=== PATIENT | female | born 2000 | race Caucasian/White ===

== ENCOUNTER 2020-06-12 12:45 | Emergency (ER) | payer MEDICAID, SELFPAY ==
[2020-06-12 12:50] VITALS: BP 130/74; PULSE 74; RESP 16; TEMP 36.1; O2SAT 100
--- NOTE | 2020-06-12 13:01 | ED.GENADUL_ITS ---
Discharge Plan Disposition Patient Disposition: HOME Condition: Improving Discharge Details Chief Complaint: Nausea/Vomit/Diar Clinical Impression: Vomiting during Primary Care Provider: Amira Kim ED Provider: Miriam Naqvi Home Meds and New Rx's Prescriptions: New metoclopramide HCl [Reglan] 10 mg tablet 10 mg PO Q6H PRN (Reason: nausea and vomiting) Qty: 20 RF: 0 Discharge Instructions Instructions: Nausea and Vomiting in (ED) Additional Instructions: Keep appointment on Wednesday as previously scheduled. Take medications as prescribed. Try small frequent meals. Follow up with primary care provider in 3-5 days. Return to ED sooner if any worsening or concerns. Increase oral fluids. May take Tylenol as needed for muscle aches. You may also try jimmie or lemon. Medical Decision Making 20-year-old female presents the ER with chief complaint of nausea vomiting diarrhea which is been ongoing for last 3 days. Patient is 6 weeks , she is 3 para 2. She denies any vaginal discharge or bleeding at this time. She reports yellow diarrhea x3 days. She reports myalgias, headache denies any fever or cough or shortness of breath. She is diaphoretic on initial exam and tearful. She has her first appointment on Wednesday. No significant past medical history or past surgical history. Did take a Zofran prior to arrival which has helped somewhat. 1404: Patient reevaluation, she states she feels better she is received 1 L normal saline and she reports feeling less nauseous after Reglan IV push. Patient given jimmie maritza for p.o. challenge. Patient was able to get up to the bathroom but did not catch a urine sample. This is however reassuring since patient is making urine at this time. I do feel that it is safe for her to be discharged home with a diagnosis of hyperemesis. Will prescribe her Reglan prescription and encouraged her to keep her appointment on Wednesday. HPI General Mode of arrival: ambulatory . Date/Time Provider Initiated Documentation: 06/12/20 12:53 . Limitations to Documentation: no limitations . Information obtained by: patient . HPI Narrative: 20-year-old female presents the ER with chief complaint of nausea vomiting diarrhea which is been ongoing for last 3 days. Patient is 6 weeks , she is 3 para 2. She denies any vaginal discharge or bleeding at this time. She reports yellow diarrhea x3 days. She reports myalgias, headache denies any fever or cough or shortness of breath. She is diaphoretic on initial exam and tearful. She has her first appointment on Wednesday. No significant past medical history or past surgical history. Did take a Zofran prior to arrival which has helped somewhat. Related Data Home Medications Medication Instructions Recorded Confirmed metoclopramide HCl [Reglan] 10 mg PO Q6H PRN #20 tab 06/12/20 Previous Rx's Medication Instructions Recorded metoclopramide HCl [Reglan] 10 mg PO Q6H PRN #20 tab 06/12/20 Allergies Allergy/AdvReac Type Severity Reaction Status Date / Time ibuprofen Allergy Unverified 06/12/20 12:55 rabbits Allergy Uncoded 06/12/20 12:54 General Stated Complaint: Nausea/Vomit/Diar ASIA: 3 Review of Systems Narrative: Constitutional: Negative for weight loss, alert and oriented, well groomed, normal body habitus, appears tearful and uncomfortable. HEENT: Denies trauma, headaches, blurry vision, nasal discharge, sore throat, trouble swallowing. Chest: Denies chest pain, palpitations, irregular rhythm, hypertension. Respiratory: Denies Shortness of breath, cough, hemoptysis. GI: Denies abdominal pain, constipation. Positive nausea vomiting diarrhea x3 days. : Denies dysuria, hematuria, flank pain, rectal bleeding. Denies vaginal discharge or bleeding. Neuro: Denies dizziness, blurry vision, weakness, syncope, headache or facial numbness. Hematologic: Denies easy bruising, intolerance to heat or cold, hair loss. [facility] Social History Smoking/Tobacco Use Status: Never Alcohol Intake: never Substance use type: does not use Do you feel safe at home: Yes Do you feel safe in your relationship?: Yes Exam Narrative Exam Narrative: Constitutional: Alert and oriented x3. Appears stated age. Normal body habitus. Head: Normocephalic, no trauma. Eyes: Pupils PERRLA, Red reflex noted, EOM's intact. Eyelids symmetrical without lesions, discharge, or swelling. ENT: Bilateral TM's WNL, External ear normal to inspection, no mastoid TTP, swelling, or erythema, Nasal turbinates WNL, no nasal discharge. Normal dentition, Posterior pharynx WNL, no exudate. Chest: RRR, Normal S1, S2, distal pulses intact. Resp: Lungs clear to auscultation bilaterally, no wheezes, rales, or rhonchi. Abdomen: Soft nontender to palpation nondistended. Musculoskeletal: Normal gait, 5/5 strength to all four extremities. Skin: No suspicious rashes or lesions. Capillary refill less than 2 sec. Neurologic: Cranial nerves II-XII intact. Alert and oriented x 3. DTR's intact. Hematologic/Lymphatic: No ecchymosis, no lymphadenopathy. Course Vital Signs Vital signs: Vital Signs Temperature 36.1 C L 06/12/20 12:50 Pulse 74 06/12/20 12:50 Respiratory Rate 16 06/12/20 12:50 Blood Pressure 130/74 06/12/20 12:50 Pulse Oximetry 100 06/12/20 12:50 Temperature 36.1 C L 06/12/20 12:50 Temperature Source Skin 06/12/20 12:50 Pulse 74 06/12/20 12:50 Respiratory Rate 16 06/12/20 12:50 Respiratory Effort Non-Labored 06/12/20 12:50 Blood Pressure 130/74 06/12/20 12:50 Blood Pressure Position Sitting 06/12/20 12:50 Pulse Oximetry 100 06/12/20 12:50 Oxygen Delivery Method Room Air 06/12/20 12:50 Oxygen Flow Rate 0 06/12/20 12:50 Pain Level 9 06/12/20 12:50
[2020-06-12] MEDS: Normal Saline 1,000 ML 1000 ML IV (13:21)
[2020-06-12] MEDS: Metoclopramide 10 MG/2 ML VIAL IVP (13:23)
[2020-06-12 13:30] LABS: Abs Immature Grans 0.01 10^3/uL (0.0-0.06); Absolute Basophil Count 0.02 10^3/uL (0.0-0.2); Absolute Eosinophil Count 0.31 10^3/uL (0.0-0.7); Absolute Lymphocyte Count 1.25 10^3/uL (1.2-3.4); Absolute Monocyte Count 0.64 10^3/uL (0.1-0.8); Absolute Neutrophil Count 4.04 10^3/uL (1.2-6.7); Basophils % 0.3; Eosinophils % 4.9; HCT 37.6 % (36.0-46.0); HGB 12.7 g/dL (11.2-15.7); Immature Grans % 0.2; Lymphocytes % 19.9; MCHC 33.8 % (32.0-36.0); MCV 88.9 fL (80-95); MPV 11.1 fL (8.0-11.0); Monocytes % 10.2; Neutrophils % 64.5; Nucleated RBC 0 %; Platelet Count 210 10^3/uL (130-400); RBC 4.23 10^6/uL (3.93-5.22); RDW 12.4 % (11.7-14.6); WBC 6.27 10^3/uL (4.4-10.8)
[2020-06-12 13:57] LABS: ALT 19 U/L (14-59); AST 6 U/L (15-37); Albumin 3.9 g/dL (3.4-5.0); Alkaline Phosphatase 50 U/L (46-116); Anion Gap 7.7 mmol/L (3-11); BUN 10 mg/dL (7-18); Bilirubin, Total 0.6 mg/dL (0.2-1.0); CO2 25.3 mmol/L (21.0-32.0); Calcium 9.3 mg/dL (8.5-10.1); Chloride 102 mmol/L (98-107); Glucose 103 mg/dL (74-106); Potassium 3.4 mmol/L (3.5-5.1); Sodium 135 mmol/L (136-145); Total Protein 7.2 g/dL (6.4-8.2)
[2020-06-12 14:15] VITALS: BP 126/62; PULSE 77; RESP 18; TEMP 36.6; O2SAT 100
[2020-06-12 14:17] VITALS: BP 126/62; PULSE 77; RESP 18; TEMP 36.6; O2SAT 100
--- NOTE | 2020-06-13 09:41 | NUR.NOTE ---
Nursing Note: At the request of [facility]STM[facility] I faxed the provider note and the labs. Janeen Mahan P [phone] F [phone]
== END 2020-06-12 14:30 | disposition home or self-care (01) ==
LOC: ER 14:12
PROVIDERS: Emergency Provider Registered Nurse Emergency; PCP Family Medicine
DX: O21.0 Mild hyperemesis gravidarum (principal); R19.7 Diarrhea, unspecified
CPT/HCPCS: 80053; 96361; 96374; 99284; 81003; 84702; 85025; J2765

== ENCOUNTER 2020-09-28 09:56 | Emergency (ER) | payer MEDICAID, SELFPAY ==
[2020-09-28 10:00] VITALS: BP 127/76; PULSE 105; RESP 16; TEMP 36.7; O2SAT 96
--- OUTSIDE RECORDS SUMMARY | 2020-09-28 10:12 | XMS_ITS ---
:2000 Author Care Team Providers Name Role Phone REYNALDO POLANCO MD Primary Care Provider [phone] Allergies Code Code System Name Reaction Severity Status Onset [id number] RxNorm Motrin Other Moderate Active 10/04/2015 Rabbit Hives ? Active ? Dander Medications Name Status Start Date Stop Date ? ? amoxicillin 500 mg capsule Completed 08/14/201408/24 1 (one) Capsule: bid - twice daily amoxicillin 500 mg tablet Completed 05/26/20162015 1 (one) Tablet: every 8 hours Augmentin 875 mg-125 mg tablet Active ? N ot available Take 1 tablet every 12 hours by oral route for 10 days. azithromycin 250 mg tablet Completed 09/09/201509/14 1 (one) Tablet Tablet: Take 2 tablets o n day 1; take 1 tablet daily for the next 4 days benzoyl peroxide 2.5 % lotion Completed ? apply once daily if too drying switch to 3x weekly bupropion HCl XL 150 mg 24 hr tablet, extended release Completed ? 06/29/2018 Take 1 tablet every day by oral route. cefdinir 300 mg capsule Completed 08/14/2015 08/24/20 15 1 (one) Capsule: bid - twice daily cephalexin 500 mg tablet Completed ? 020 Take 1 tablet twice a day by oral route. cetirizine 10 mg tablet Completed ? 07/30/20 20 Take 1 tablet every day by oral route. clindamycin 1 %-benzoyl Completed ? 05/10/20 20 peroxide 5 % topical gel Debrox 6.5 % ear drops Completed 02/07/2016 7 1 (one) Solution Solution: bid - twice daily desonide 0.05 % topical cream Completed 05/03/2013 1 Cream: apply twice daily to affected area Diclegis 10 mg-10 mg tablet,delayed release Completed ? 12/12/2019 Take 2 tablets every day by oral route at bedtime for 2 days. doxycycline hyclate 100 mg capsule Completed ? 05/10/2020 Take 1 capsule every day by oral route for 90 days. escitalopram 10 mg tablet Completed ? 2018 Flovent HFA 110 mcg/actuation aerosol inhaler Active ? Not available Inhale 1 puff twice a day by inhalation route. fluoxetine 10 mg tablet Completed 05/10/2013 05/10/20 13 1 (one) Tablet: daily hydrocortisone 1 % lotion Completed ? 2017 APPLY A THIN LAYER TO THE AFFECTED AREA(S) BY TOPICAL ROUTE ONC E DAILY ibuprofen 600 mg tablet Completed ? 04/14/20 FE 10/23 (28) 1 mg-20 mcg Completed ? 0 12/12/2019 (21)/75 mg (7) tablet Keflex 500 mg capsule Completed 10/14/2015 10/19/2015 1 (one) Capsule Capsule: two times daily Lidocaine Viscous 2 % mucosal solution Completed 4 04/03/2015 1 (one) Solution: 5ml 3-4x/day Macrobid 100 mg capsule Completed ? 08/27/20 20 Take 1 capsule every 12 hours by oral route for 5 days. metoclopramide 10 mg tablet Completed ? 07/05 Take 1 tablet 4 times a day by oral route. Mirena 20 mcg/24 hours (6 yrs) 52 mg intrauterine device Complet ed 08/03/2016 06/08/2017 1 IUD IUD: every five years misoprostol 200 mcg tablet Completed ? 12/11 omeprazole 20 mg capsule,delayed release Completed ? 08/27/2020 Take 1 capsule every day by oral route. ondansetron HCl 4 mg tablet Completed ? 07/05 Take 1 tablet 3 times a day by oral route as needed. Ortho Micronor 0.35 mg tablet Completed 05/09/2016 1 (one) Tablet: daily paroxetine 10 mg tablet Completed ? 07/30/20 20 paroxetine 40 mg tablet Completed ? 07/30/20 20 Paxil 20 mg tablet Completed ? 05/19/2019 Take 1 tablet every day by oral route for 30 days. prednisone 20 mg tablet Completed ? 07/30/20 20 Take 2 tablets every day by oral route for 5 days. Vitamin tablet Completed 09/11/2015 04/22/20 16 1 (one) Tablet Tablet: daily vitamin with calcium no.72-iron 27 mg-folic acid 1 mg tablet Completed ? 04/20/2018 Take 1 tablet every day by oral route. ProAir HFA 90 mcg/actuation aerosol inhaler Active ? Not available Inhale 2 puffs every 4 hours by inhalation route as needed. promethazine 25 mg tablet Active ? Not av ailable propranolol ER 60 mg capsule,24 hr,extended release Completed 08/07/2013 08/07/2013 1 Capsule ER 24HR: every night ranitidine 150 mg tablet Completed ? 018 sertraline 100 mg tablet Active ? Not justin ilable TAKE 1 TABLET BY MOUTH ONCE DAILY topiramate 25 mg tablet Completed 02/09/2014 08/14/20 14 1 (one) Tablet Tablet: as directed tretinoin 0.025 % topical cream Completed ? 07/30/2020 Start with 2-3x weekly then work up to APPLY TO THE AFFECTED AREA(S) BY TOPICAL ROUTE ONCE DAILY AT BEDTIME Tylenol 325 mg tablet Completed ? 07/30/2020 Take 2 tablets every 6 hours by oral route as needed. Valium 5 mg tablet Completed ? 12/12/2019 1 tab 2 hours prior to procedure,. may take 2nd tablet at arrival to procedure and 1 tablet evening after procedure if needed Problems Name Status Onset Date Source ? Unknown 02/21/2018 ? Generalized Anxiety Disorder Active 06/30/2018 ? Active 06/13/2020 ? Routine Care Active 08/27/2020 ? Moderate Recurrent Major Depression Active ? History Migraine Active ? History Mild Intermittent Asthma Active ? History Antepartum Hemorrhage Active ? History Abnormal Glucose Tolerance in Mother Active ? History Complicating , Childbirth AND/OR Puerperium Condition Affecting Obstetrical Unknown ? History Care of Mother Contact Dermatitis Active ? History Acne Active ? History Neck Pain Active ? History Localized Enlarged Lymph Nodes Active ? H istory Routine Care Unknown ? History Procedure by Method Unknown ? History SNOMED CT Concept Unknown ? History Procedures Date Name Performed by ? 10/04/2004 Hernia Repair Information not avai lable 06/14/2020 US, Obstetric, Transabdominal + [facility] Radiology (Internal) Transvaginal [address] [place], [place] [phone] (Work Place) 07/23/2020 US, Obstetric, 1St Trimester [facility] Radiology (Internal) [address] [place] [id number] (Work Place) 08/27/2020 US, Obstetric, Transabdominal + [facility] Radiology (Internal) Transvaginal [address] [place], [place] [phone] (Work Place) Results Lab Results Date Name Specimen Result Interpretation Description Value Range Status Address ? 06/26/2020 Cbc BLD ? Wbc 7.0 10*3/uL 5.0-10.0 Final [place] 10*3/uL [facility] L ab (Internal) : [address] ? ? BLD ? Rbc 4.34 10*6/uL 4.10-5.30 Final N orth 10*6/uL [facility] L ab (Internal) : [address] t ? ? BLD ? Hgb 13.1 g/dL 12.0-16.0 Final [place] g/dL [facility] L ab (Internal) : [address] t ? ? BLD ? Hct 38.5 % 37.0-47.0 Final [facility] L ab (Internal) : [address] t ? ? BLD ? Mcv 88.7 fL 80.0-96.0 Final [facility] L ab (Internal) : [address] t ? ? BLD ? Mch 30.2 pg 26.0-32.0 Final [facility] L ab (Internal) : [address] t ? ? BLD ? Mchc 34.0 g/dL 31.0-35.0 Final Nort [place] g/dL [facility] L ab (Internal) : [address] t ? ? BLD ? Plt 231 10*3/uL 130-450 Final Nort [place] 10*3/uL [facility] L ab (Internal) : [address] ? ? BLD ? Rdw 12.1 % 11.5-14.5 Final [facility] L ab (Internal) : [address] 06/26/2020 Culture UR ? Final microbiology ? Final [place] ([place] results Country Count), Hospital Lab Urine (Internal) : [address] 06/26/2020 Urinalysis UR ? UA-color yellow pale Final [place] , Complete yellow [facility] ab (Internal) : [address] ? ? UR ? UA-appear clear clear Final [facility] ab (Internal) : [address] ? ? UR ? UA-spec 1.025 1.003-1.0 Final [place] Grav [address] [place] [address] ab (Internal) : [address] ? ? UR ? UA-pH 6.0 [pH] 4.6-8.0 Final [place] [pH] [facility] ab (Internal) : [address] ? ? UR ? UA-leuk negative negative Final [facility] ab (Internal) : [address] ? ? UR ? UA-nitrit negative negative Final No rth [facility] ab (Internal) : [address] ? ? UR ? UA-prot negative negative Final [facility] ab (Internal) : [address] ? ? UR ? UA-gluc trace negative Final [facility] ab (Internal) : [address] [place] ? ? UR ? UA-ketone negative negative [facility] [address] [place] ? ? UR ? UA-urobil normal normal Final [facility] ab (Internal) : [address] [place] ? ? UR ? UA-bili negative negative Final [facility] ab (Internal) : [address] [place] ? ? UR ? UA-blood negative negative Final [facility] ab (Internal) : [address] [place] ? ? UR ? UA-WBC 0-3 [hpf] 0-3 [hpf] Final [facility] ab (Internal) : [address] [place] ? ? UR ? UA-RBC 0-2 [hpf] 0-2 [hpf] Final [facility] ab (Internal) : [address] ? ? UR ? UA-bacter rare [hpf] none seen Final [facility] [hpf] [facility] ab (Internal) : [address] ? ? UR ABNORMAL UA-epithe few [hpf] none seen Final [place] lial [hpf] [facility] L ab (Internal) : [address] ? ? UR ABNORMAL UA-mucus rare [hpf] none seen Final [place] [hpf] [facility] L ab (Internal) : [address] 06/26/2020 Type + BLD ? Abo O ? Final [place] Screen, [facility] Serum Hospital L ab (Internal) : [address] t ? ? BLD ? Rh positive ? Final [facility] L ab (Internal) : [address] ? ? BLD ? Ab Scrn negative negative Final Nort [facility] L ab (Internal) : [address] [facility] 06/26/2020 HIV (1+2) S ? HIV 1/2 negative negative [facility] Ab Screen, Antigen Count ry Serum and Hospital L ab Antibody (Interna l): [address] 06/26/2020 HBsAg S ? Hep B negative negative Final No rth (Hepatitis Surface Ag Co untry B Surface Hospita l Lab Ag), Serum (Inter nal): [address] [facility] 06/26/2020 Hepatitis S ? Hep C Ab negative negative Fin dena [place] C Virus W Rfx PCR Countr y Ab, Serum Hospita l Lab (Internal) : [address] 06/26/2020 RPR (Rapid BLD ? Obs RPR non-reactive non-reac t Final [place] Plasma airam [place]), Hospital Lab Serum (Internal) : [address] 06/26/2020 Rubella BLD ? Obs Rbla positive positive Final [place] Ab, Serum [facility] Hospital L ab (Internal) : [address] 03/28/2020 beta-HCG, S ? HCG, <2.4 [IU]/mL 2.0-6.0 Fin dena Jerez Quantitati Quant [IU]/mL Count ry ve, Serum Hospita l Lab or Plasma (Line Palletizer al): [address] 05/19/2019 Chlamydia - Catp sent to ? Final No rth Trachomati reference lab Country s + Hospital L ab Neisseria (Line Palletizer al): Gonorrhea [address] rRNA, QL, [address] Genital ? ? - Gcatp sent to ? Final [place] reference lab Cou ntr Hospital L ab (Internal) : [address] ? ? - Specimen see comments ? Final N orth Descriptio Countr y n Hospital L ab (Internal) : [address] ? ? - Chlamydia negative ? Final Nort h Result [facility] Hospital L ab (Internal) : [address] ? ? - GC Result negative ? Final Nort h [facility] Hospital L ab (Internal) : [address] 05/19/2019 Pap Test, MISC - Pap see report ? Final [place] Thinprep, [facility] Cervical Hospital Lab (Internal) : [address] ? ? MISC - Report results below ? Final No rth [facility] L ab (Internal) : [address] 01/11/2019 TSH, Serum S - Tsh 1.39 u[IU]/mL 0.47-4.68 Final [place] or Plasma u[IU]/mL Count Hospital L ab (Internal) : [address] 01/11/2019 CBC W/ BLD - Wbc 7.6 10*3/uL 5.0-10.0 Final [place] Auto Diff 10*3/uL Countr Hospital L ab (Internal) : [address] ? ? BLD - Rbc 4.89 10*6/uL 4.10-5.30 Final N orth 10*6/uL [facility] L ab (Internal) : [address] ? ? BLD - Hgb 14.2 g/dL 12.0-16.0 Final Nort [place] g/dL [facility] L ab (Internal) : [address] ? ? BLD - Hct 44.0 % 37.0-47.0 Final [place] % [facility] L ab (Internal) : [address] ? ? BLD - Mcv 90.0 fL 80.0-96.0 Final [place] fL [facility] L ab (Internal) : [address] ? ? BLD - Mch 29.0 pg 26.0-32.0 Final [place] pg [facility] L ab (Internal) : [address] t ? ? BLD - Mchc 32.3 g/dL 31.0-35.0 Final Nort h g/dL [facility] Hospital L ab (Internal) : [address] ? ? BLD - Rdw 13.0 % 11.5-14.5 Final [facility] L ab (Internal) : [address] ? ? BLD - Plt 258 10*3/uL 130-450 Final Nort [place] 10*3/uL [facility] Hospital L ab (Internal) : [address] ? ? BLD - Anc 4.70 10*3/uL ? Final Nort h [facility] Hospital L ab (Internal) : [address] ? ? BLD - Neutro 61.6 % 40.0-75.0 Final [facility] L ab (Internal) : [address] t ? ? BLD - Lymph 26.9 % 20.0-50.0 Final [facility] L ab (Internal) : [address] t ? ? BLD - Bill[place] 7.9 % 2.0-10.0 Final [facility] L ab (Internal) : [address] ? ? BLD - Eos 2.8 % 1.0-6.0 % Final [facility] L ab (Internal) : [address] ? ? BLD - Baso 0.5 % 0.0-1.0 % Final [facility] L ab (Internal) : [address] t ? ? BLD - Ig 0.3 % 0.0-0.9 % Final [facility] L ab (Internal) : [address] 02/24/2018 CBC W/ BLD High Wbc 10.6 10*3/uL 5.0-10.0 Final [place] 10*3/uL [facility] Hospital L ab (Internal) : [address] t ? ? BLD - Rbc 4.56 10*6/uL 4.10-5.30 Final N orth 10*6/uL [facility] Hospital L ab (Internal) : [address] t ? ? BLD - Hgb 12.1 g/dL 12.0-16.0 [facility] Hospital L ab (Internal) : [address] ? ? BLD - Hct 37.9 % 37.0-47.0 Final [facility] Hospital L ab (Internal) : [address] ? ? BLD - Mcv 83.1 fL 80.0-96.0 Final [facility] Hospital L ab (Internal) : [address] ? ? BLD - Mch 26.5 pg 26.0-32.0 Final [place] pg [facility] Hospital L ab (Internal) : [address] ? ? BLD - Mchc 31.9 g/dL 31.0-35.0 Final Nort [place] g/dL [facility] Hospital L ab (Internal) : [address] ? ? BLD - Rdw 13.9 % 11.5-14.5 Final [facility] Hospital L ab (Internal) : [address] ? ? BLD - Plt 188 10*3/uL 130-450 Final Nort [place] 10*3/uL [facility] Hospital L ab (Internal) : [address] t ? ? BLD - Anc 8.41 10*3/uL ? Final Nort h [facility] Hospital L ab (Internal) : [address] ? ? BLD High Neutro 79.3 % 40.0-75.0 Final [facility] Hospital L ab (Internal) : [address] ? ? BLD Low Lymph 12.5 % 20.0-50.0 Final [facility] Hospital L ab (Internal) : [address] t ? ? BLD - Bill[place] 7.1 % 2.0-10.0 Final [facility] Hospital L ab (Internal) : [address] ? ? BLD Low Eos 0.4 % 1.0-6.0 % Final [facility] Hospital L ab (Internal) : [address] ? ? BLD - Baso 0.2 % 0.0-1.0 % Final [facility] L ab (Internal) : [address] ? ? BLD - Ig 0.5 % 0.0-0.9 % Final [facility] Hospital L ab (Internal) : [address] t 02/24/2018 CMP, Serum S Low g/r 63 mg/dL 74-106 Final [place] or Plasma mg/dL [facility] ab (Internal) : [address] t ? ? S - Bun 9 mg/dL 7-17 Final [place] mg/dL [facility] Hospital L ab (Internal) : [address] t ? ? S - Crea 0.60 mg/dL 0.52-1.04 Final [place] mg/dL [facility] L ab (Internal) : [address] t ? ? S - Ca 9.5 mg/dL 8.4-10.2 Final [place] mg/dL [facility] L ab (Internal) : [address] t ? ? S Low Na 133 mmol/L 137-145 Final [place] mmol/L [facility] Hospital L ab (Internal) : [address] ? ? S - K 4.0 mmol/L 3.5-5.1 Final [place] mmol/L [facility] Hospital L ab (Internal) : [address] t ? ? S - Cl 102 mmol/L 98-107 Final [place] mmol/L [facility] Hospital L ab (Internal) : [address] t ? ? S Low Tco2 19.0 mmol/L 22.0-30.0 Final No rth mmol/L [facility] L ab (Internal) : [address] t ? ? S - Tp 6.9 g/dL 6.3-8.2 Final [place] g/dL [facility] Hospital L ab (Internal) : [address] t ? ? S - Alb 3.9 g/dL 3.5-5.0 Final [place] g/dL [facility] Hospital L ab (Internal) : [address] ? ? S - Tbil 0.8 mg/dL 0.2-1.3 Final [place] mg/dL [facility] Hospital L ab (Internal) : [address] t ? ? S High Alp 723 U/L 50-136 Final North U/L [facility] Hospital L ab (Internal) : [address] ? ? S - Alt 19 U/L 9-52 U/L Final North (Sgpt) [facility] Hospital L ab (Internal) : [address] [facility] ? ? S - Ast 17 U/L 14-36 U/L Final [place] (Sgot) [facility] Hospital L ab (Internal) : [address] [facility] 02/24/2018 Amylase, S - Yareli 73 U/L 30-110 Final [facility] Serum or U/L [facility] Plasma Hospital L ab (Internal) : [address] [facility] 02/24/2018 Lipase, S - Lip 42 U/L 23-300 Final [place] Serum or U/L [facility] Plasma Hospital L ab (Internal) : [address] [facility] 02/24/2018 Protein/cr UR - Prot/crea 0.04 mg/dL ? F inal [place] eatinine, Ratio, U Count ry Ratio, Hospital L ab Urine (Internal) : [address] [facility] ? ? UR High U-crea, 202 mg/dL 30-125 Final [place] Spot mg/dL [facility] Hospital L ab (Internal) : [address] [facility] ? ? UR - U-prot, 9.0 mg/dL 0.0-11.9 Final [facility] Spot mg/dL [facility] ab (Internal) : [address] [facility] 02/24/2018 Alpha MISC - Pamg-1 negative ? Final [place] Microglobu (Amnisure) [facility] ab Placental (Line Palletizer al): (Pamg-1), [address], Vaginal Fluid 02/21/2018 Streptococ - Final microbiology ? Fin al [place] cus Group results Countr y B, Hospital ab Culture, (Interna l): Vaginal or [address] , [facility] 01/18/2018 Alpha AMNI ? Pamg-1 negative ? Final [place] Microglobu (Amnisure) [facility] ab Placental (Line Palletizer al): (Pamg-1), [address], Vaginal Fluid 01/14/2018 RPR (Rapid BLD ? Obs RPR non-reactive non-reac t [facility] Plasma airam [place]), Hospital Lab Serum (Internal) : [address] 01/14/2018 Rubella BLD ? Obs Rbla positive positive Final [place] Ab, Serum [facility] Hospital L ab (Internal) : [address] 01/14/2018 HBsAg S ? Hep B negative negat Final Nort h (Hepatitis Surface Ag Co untry B Surface Hospita l Lab Ag), Serum (Inter nal): [address] 01/14/2018 Venipunctu BLD ? Venpn* ? ? Final N orth re [facility] Hospital L ab (Internal) : [address] [facility] 01/14/2018 Culture, UR ? Final microbiology ? Final [place] Urine results [facility] L ab (Internal) : [address] [facility] 01/14/2018 HIV (1+2) S ? HIV 1/2 negative negat Final [place] Ab Screen, Antigen Count ry Serum and Hospital L ab Antibody (Interna l): [address] 01/14/2018 Hepatitis S ? Hep C Ab negative negat Final [place] C Virus W Rfx PCR Countr y Ab, Serum Hospita l Lab (Internal) : [address] 01/14/2018 Urinalysis UR ? UA-color yellow pale Final [place] , Complete yellow [facility] Hospital L ab (Internal) : [address] ? ? UR ? UA-appear clear clear Final [facility] L ab (Internal) : [address] ? ? UR ? UA-spec 1.010 1.003-1.0 Final [place] Grav 35 [facility] Hospital L ab (Internal) : [address] ? ? UR ? UA-pH 7.0 [pH] 4.6-8.0 Final [place] [pH] [facility] L ab (Internal) : [address] ? ? UR ? UA-leuk negative negative Final Nort h Est [facility] Hospital L ab (Internal) : [address] ? ? UR ? UA-nitrit negative negative Final No rth e [facility] L ab (Internal) : [address] ? ? UR ? UA-prot negative negative Final [place] [facility] Hospital L ab (Internal) : [address] ? ? UR ? UA-gluc negative negative Final [facility] L ab (Internal) : [address] ? ? UR ? UA-ketone negative negative Final No rth [facility] L ab (Internal) : [address] [place] ? ? UR ? UA-urobil normal normal Final [facility] L ab (Internal) : [address] [place] ? ? UR ? UA-bili negative negative Final [facility] L ab (Internal) : [address] [place] ? ? UR ? UA-blood negative negative Final [facility] L ab (Internal) : [address] [place] ? ? UR ? UA-WBC 0-3 [hpf] 0-3 [hpf] Final [facility] L ab (Internal) : [address] [place] ? ? UR ? UA-RBC 0-2 [hpf] 0-2 [hpf] Final [facility] L ab (Internal) : [address] ? ? UR ? UA-bacter none seen none seen Final [place] ia [hpf] [hpf] [facility] ab (Internal) : [address] [place] ? ? UR ABNORMAL UA-epithe few [hpf] none seen Final [place] lial [hpf] [facility] ab (Internal) : [address] ? ? UR ? UA-mucus none seen none seen Final N orth [hpf] [hpf] [facility] L ab (Internal) : [address] 01/14/2018 Type + BLD ? Abo O ? Final [facility] L ab (Internal) : [address] ? ? BLD ? Rh positive ? Final [facility] L ab (Internal) : [address] ? ? BLD ? Ab Scrn negative negative Final [facility] L ab (Internal) : [address] 01/14/2018 Cbc BLD ? Wbc 8.4 10*3/uL 5.0-10.0 Final [place] 10*3/uL [facility] Hospital L ab (Internal) : [address] t ? ? BLD Low Rbc 4.02 10*6/uL 4.10-5.30 Final N orth 10*6/uL [facility] Hospital L ab (Internal) : [address] ? ? BLD Low Hgb 11.5 g/dL 12.0-16.0 Final Nort h g/dL [facility] Hospital L ab (Internal) : [address] ? ? BLD Low Hct 35.4 % 37.0-47.0 Final [facility] Hospital L ab (Internal) : [address] ? ? BLD ? Mcv 88.1 fL 80.0-96.0 Final [place] fL [facility] Hospital L ab (Internal) : [address] ? ? BLD ? Mch 28.6 pg 26.0-32.0 Final [place] pg [facility] Hospital L ab (Internal) : [address] ? ? BLD ? Mchc 32.5 g/dL 31.0-35.0 Final Nort h g/dL [facility] Hospital L ab (Internal) : [address] ? ? BLD ? Plt 184 10*3/uL 130-450 Final Nort [place] 10*3/uL [facility] L ab (Internal) : [address] ? ? BLD ? Rdw 12.7 % 11.5-14.5 Final [facility] L ab (Internal) : [address] 01/14/2018 Glucose S ? F Gluc, S 77 mg/dL 74-106 Final [place] Tolerance mg/dL [facility] ab Gestationa (Inter nal): l, 3-Hour [address] ? ? S High 1 hr 165 mg/dL 70-140 Final [place] gluc,S mg/dL [facility] (Internal) : [address] ? ? S ? 2 hr 118 mg/dL 70-140 Final [place] gluc,S mg/dL [facility] (Internal) : [address] t ? ? S Low 3 hr 68 mg/dL 70-140 Final [place] gluc,S mg/dL [facility] L ab (Internal) : [address] 12/24/2017 Venipunctu BLD ? Venpn* ? ? Final N orth re [facility] (Internal) : [address] 12/24/2017 CBC W/ BLD ? Wbc 9.1 10*3/uL 5.0-10.0 Final [place] Diff 10*3/uL [facility] (Internal) : [address] ? ? BLD Low Rbc 3.89 10*6/uL 4.10-5.30 Final N orth 10*6/uL [facility] (Internal) : [address] t ? ? BLD Low Hgb 11.5 g/dL 12.0-16.0 Final Nort h g/dL [facility] (Internal) : [address] t ? ? BLD Low Hct 35.1 % 37.0-47.0 Final [facility] ab (Internal) : [address] t ? ? BLD ? Mcv 90.2 fL 80.0-96.0 Final [facility] (Internal) : [address] t ? ? BLD ? Mch 29.6 pg 26.0-32.0 Final [facility] ab (Internal) : [address] t ? ? BLD ? Mchc 32.8 g/dL 31.0-35.0 Final Nort h g/dL [facility] (Internal) : [address] t ? ? BLD ? Rdw 13.0 % 11.5-14.5 Final [facility] (Internal) : [address] t ? ? BLD ? Plt 181 10*3/uL 130-450 Final Nort h 10*3/uL [facility] (Internal) : [address] t ? ? BLD ? Anc 6.54 10*3/uL ? Final Nort h [facility] (Internal) : [address] t ? ? BLD ? Neutro 71.8 % 40.0-75.0 Final [facility] (Internal) : [address] t ? ? BLD Low Lymph 18.5 % 20.0-50.0 Final [facility] L ab (Internal) : [address] t ? ? BLD ? Billings 7.2 % 2.0-10.0 Final [facility] L ab (Internal) : [address] t ? ? BLD ? Eos 1.5 % 1.0-6.0 % Final [facility] ab (Internal) : [address] t ? ? BLD ? Baso 0.3 % 0.0-1.0 % Final [facility] (Internal) : [address] t ? ? BLD ? Ig 0.7 % 0.0-0.9 % Final [facility] ab (Internal) : [address] t 12/24/2017 Glucose S High Gluc, 1 141 mg/dL 70-140 Final [place] Tolerance hr Pp mg/dL [facility] Test, [facility] ab Gestationa (Inter nal): l, 1-Hour [address] 09/11/2017 Venipunctu BLD ? Venpn* ? ? Final N orth re [facility] L ab (Internal) : [address] t 09/11/2017 Type + BLD ? Abo O ? Final [facility] Blood [facility] L ab (Internal) : [address] t ? ? BLD ? Rh positive ? Final [facility] ab (Internal) : [address] t ? ? BLD ? Ab Scrn negative negative [facility] : [address] t 09/11/2017 beta-HCG, S High HCG, 867[address].0 2.0-6.0 Final N orth Quantitati Quant [IU]/mL [IU]/mL Coun try ve, Serum Hospita l Lab or Plasma (Line Palletizer al): [address] t 09/11/2017 CMP, Serum S ? g/r 82 mg/dL 74-106 Final North or Plasma mg/dL [facility] L ab (Internal) : [address] t ? ? S ? Bun 10 mg/dL 7-17 Final [place] mg/dL [facility] L ab (Internal) : [address] t ? ? S Low Crea 0.50 mg/dL 0.52-1.04 Final [facility] th mg/dL [facility] ([facility] : [address] t ? ? S ? Ca 9.4 mg/dL 8.4-10.2 Final [place] mg/dL [facility] (Internal) : [address] t ? ? S Low Na 133 mmol/L 137-145 Final [place] mmol/L [facility] (Internal) : [address] t ? ? S ? K 3.6 mmol/L 3.5-5.1 Final [place] mmol/L [facility] (Internal) : [address] t ? ? S ? Cl 104 mmol/L 98-107 Final [place] mmol/L [facility] (Internal) : [address] ? ? S Low Tco2 20.0 mmol/L 22.0-30.0 Final No rth mmol/L [facility] (Internal) : [address] t ? ? S ? Tp 6.9 g/dL 6.3-8.2 Final [place] g/dL [facility] (Internal) : [address] ? ? S ? Alb 4.1 g/dL 3.5-5.0 Final [place] g/dL [facility] (Internal) : [address] t ? ? S ? Tbil 0.4 mg/dL 0.2-1.3 Final [place] mg/dL [facility] (Internal) : [address] ? ? S Low Alp 46 U/L 50-136 Final [place] U/L [facility] (Internal) : [address] t ? ? S ? Alt 27 U/L 9-52 U/L Final [place] (Sgpt) [facility] L ab (Internal) : [address] t ? ? S ? Ast 15 U/L 14-36 U/L Final [place] (Sgot) [facility] L ab (Internal) : [address] t 09/11/2017 CBC W/ BLD ? Wbc 6.5 10*3/uL 5.0-10.0 Final [place] Auto Diff 10*3/uL [facility] (Internal) : [address] t ? ? BLD ? Rbc 4.22 10*6/uL 4.10-5.30 Final N orth 10*6/uL [facility] (Internal) : [address] [place] ? ? BLD ? Hgb 12.7 g/dL 12.0-16.0 Final Nort h g/dL [facility] (Internal) : [address] ? ? BLD ? Hct 37.0 % 37.0-47.0 Final [place] [facility] L [facility] (Internal) : [address] [place] ? ? BLD ? Mcv 87.7 fL 80.0-96.0 Final [facility] (Internal) : [address] [place] ? ? BLD ? Mch 30.1 pg 26.0-32.0 Final [place] pg [facility] (Internal) : [address] [place] ? ? BLD ? Mchc 34.3 g/dL 31.0-35.0 Final Nort h g/dL [facility] (Internal) : [address] [place] ? ? BLD ? Rdw 12.2 % 11.5-14.5 Final [facility] (Internal) : [address] [place] ? ? BLD ? Plt 195 10*3/uL 130-450 Final Nort h 10*3/uL [facility] (Internal) : [address] [place] ? ? BLD ? Anc 3.86 10*3/uL ? Final Nort h [facility] (Internal) : [address] [place] ? ? BLD ? Neutro 59.6 % 40.0-75.0 Final [facility] (Internal) : [address] [place] ? ? BLD ? Lymph 31.3 % 20.0-50.0 Final [facility] (Internal) : [address] [place] ? ? BLD ? Billings 6.3 % 2.0-10.0 Final [facility] (Internal) : [address] [place] ? ? BLD ? Eos 2.0 % 1.0-6.0 % Final [facility] L ab (Internal) : [address] ? ? BLD ? Baso 0.3 % 0.0-1.0 % Final [facility] L ab (Internal) : [address] ? ? BLD ? Ig 0.5 % 0.0-0.9 % Final [facility] L ab (Internal) : [address] t 09/09/2017 CT RNA, MISC ? Specimen cervix ? Final No rth Qual, PCR, Descriptio Co untry Unspecifie n Hospit al Lab d Specimen (Inter nal): [address] t ? ? MISC ? Chlamydia negative ? Final Nort h Result [facility] (Internal) : [address] t ? ? MISC ? GC Result negative ? Final Nort h [facility] L ab (Internal) : [address] 09/01/2017 Venipunctu BLD ? Venpn* ? ? Final N orth re [facility] L ab (Internal) : [address] 09/01/2017 Mononucleo BLD ? Billings negative negative Final [facility] Lab e Ab, (Internal) : Serum [address] 09/01/2017 CMP, Serum S ? g/r 82 mg/dL 74-106 Final [place] or Plasma mg/dL [facility] L ab (Internal) : [address] t ? ? S ? Bun 13 mg/dL 7-17 Final [place] mg/dL [facility] L ab (Internal) : [address] t ? ? S ? Crea 0.60 mg/dL 0.52-1.04 Final Nor th mg/dL [facility] L ab (Internal) : [address] t ? ? S ? Ca 9.5 mg/dL 8.4-10.2 Final [place] mg/dL [facility] L ab (Internal) : [address] t ? ? S Low Na 135 mmol/L 137-145 Final [place] mmol/L [facility] L ab (Internal) : [address] ? ? S ? K 3.9 mmol/L 3.5-5.1 Final [place] mmol/L [facility] L ab (Internal) : [address] t ? ? S ? Cl 101 mmol/L 98-107 Final [place] mmol/L [facility] (Internal) : [address] ? ? S ? Tco2 22.0 mmol/L 22.0-30.0 Final No rth mmol/L [facility] (Internal) : [address] ? ? S ? Tp 6.9 g/dL 6.3-8.2 Final [place] g/dL [facility] (Internal) : [address] ? ? S ? Alb 4.1 g/dL 3.5-5.0 Final [place] g/dL [facility] (Internal) : [address] t ? ? S ? Tbil 0.3 mg/dL 0.2-1.3 Final [place] mg/dL [facility] (Internal) : [address] t ? ? S ? Alp 53 U/L 50-136 Final [place] U/L [facility] (Internal) : [address] t ? ? S ? Alt 24 U/L 9-52 U/L Final [place] (Sgpt) [facility] (Internal) : [address] ? ? S ? Ast 15 U/L 14-36 U/L Final [place] (Sgot) [facility] (Internal) : [address] t 09/01/2017 CBC W/ BLD ? Wbc 8.8 10*3/uL 5.0-10.0 Final [place] Auto Diff 10*3/uL [facility] (Internal) : [address] t ? ? BLD ? Rbc 4.46 10*6/uL 4.10-5.30 Final N orth 10*6/uL [facility] (Internal) : [address] ? ? BLD ? Hgb 13.4 g/dL 12.0-16.0 Final Nort h g/dL [facility] (Internal) : [address] ? ? BLD ? Hct 39.6 % 37.0-47.0 Final [place] % [facility] (Internal) : [address] ? ? BLD ? Mcv 88.8 fL 80.0-96.[address] [facility] ab (Internal) : [address] ? ? BLD ? Mch 30.0 pg 26.0-32.0 Final [facility] ab (Internal) : [address] ? ? BLD ? Mchc 33.8 g/dL 31.0-35.0 Final [facility] h g/dL [facility] ab (Internal) : [address] ? ? BLD ? Rdw 12.2 % 11.5-14.5 Final [facility] ab (Internal) : [address] ? ? BLD ? Plt 230 10*3/uL 130-450 Final Nort h 10*3/uL [facility] ab (Internal) : [address] [place] ? ? BLD ? Anc 5.47 10*3/uL ? Final Nort h [facility] ab (Internal) : [address] ? ? BLD ? Neutro 62.2 % 40.0-75.0 Final [facility] ab (Internal) : [address] ? ? BLD ? Lymph 26.5 % 20.0-50.0 Final [facility] ab (Internal) : [address] ? ? BLD ? Billings 7.5 % 2.0-10.0 Final [facility] ab (Internal) : [address] ? ? BLD ? Eos 3.0 % 1.0-6.0 % Final [facility] ab (Internal) : [address] ? ? BLD ? Baso 0.5 % 0.0-1.0 % Final [facility] ab (Internal) : [address] ? ? BLD ? Ig 0.3 % 0.0-0.9 % Final [facility] ab (Internal) : [address] Past Encounters 09/24/2020 Routine Care Shanelle Martin, HIREN: [address] [place] [phone], Ph. 08/27/2020 Acute Maxillary Sinusitis; Acute Frontal Sinusitis; Gildardo Nguyen MD: [address] [place] [phone], Ph. 08/27/2020 Routine Care HENRY HernandezM: [address] [place] [phone], Ph. 07/30/2020 Routine Care; Acute Cystitis i n , Antepartum HENRY HernandezM: [address] [place] [phone], Ph. 06/14/2020 Aniya Rodriguez RN: [address] [place] [phone], Ph. 06/14/2020 Routine Care; Gastroesophageal Reflux Disease Shanelle Martin CNM: [address] [place] [phone], Ph. 12/12/2019 Mild Intermittent Asthma Shavon Shanks STORE CONSULTANT: [address] [place] [phone], Ph. 09/20/2019 Acne; Generalized Anxiety Disorder; Mode rate Recurrent Major Depression; Administration of Influenza Vaccine AYDEN Hardy: [address] [place] [phone], Ph. 05/19/2019 Routine Gynecologic Examination Done; Or al Contraception Randolph Greene MD: [address] [place] [phone], Ph. Social History Tobacco Smoking Status Never Smoker Vaccine List Vaccine Type DTaP 1998 1998 1998 09/16/1999 04/12/2003 Hep B, adolescent or pediatric 1998 1998 Hib (HbOC) 1998 1998 1998 09/16/1999 influenza, seasonal, injectable, preserv ative free 06/15/2012?0.5 mL 06/21/2013?0.5 mL IPV 1998 1998 09/12/1999 09/16/1999 04/12/2003 MMR 03/21/1999 11/02/2002 Tdap 06/27/2009 03/19/2016?0.5 mL varicella 07/30/1999 08/15/2009 Plan of Care Reminders Provider Appointments None ? ? recorded. Lab None ? ? recorded. Referral None ? ? recorded. Procedures None ? ? recorded. Surgeries None ? ? recorded. Imaging None ? ? recorded. Vitals 09/24/2020 01:50PM OB 20 Height Weight BMI Blood Pressure 165.1 cm 81.92 kg 30.1 kg/m2 124/70 mm[Hg] 08/27/2020 02:10PM OB 20 Weight Blood Pressure 78.93 kg 118/70 mm[Hg] 08/27/2020 03:20PM Acute 20 Height Weight BMI Blood Pressure 165.1 cm 79.2 kg 29.1 kg/m2 114/70 mm[Hg] 07/30/2020 09:10AM New OB Weight Blood Pressure 74.12 kg 122/70 mm[Hg] 06/14/2020 09:40AM Office 20 Weight Blood Pressure 70.72 kg 104/62 mm[Hg] 12/12/2019 11:40AM Acute 20 Height Weight BMI Blood Pressure 165.1 cm 67.45 kg 24.7 kg/m2 120/82 mm[Hg] 09/20/2019 12:40PM Acute 20 Height Weight BMI Blood Pressure 165.1 cm 65.52 kg 24 kg/m2 120/70 mm[Hg] 05/19/2019 11:10AM HME 20 Height Weight BMI Blood Pressure 165.1 cm 63.87 kg 23.4 kg/m2 122/60 mm[Hg] 01/11/2019 09:40AM Follow Up 20 Height Weight BMI Blood Pressure 165.1 cm 68.95 kg 25.3 kg/m2 126/80 mm[Hg] 06/29/2018 10:20AM Follow Up 20 Height Weight BMI Blood Pressure 165.1 cm 67.4 kg 24.7 kg/m2 124/82 mm[Hg] 03/02/2018 03:40PM OB 10 Weight Blood Pressure 78.19 kg 130/62 mm[Hg] 02/21/2018 01:30PM Office 20 Weight Blood Pressure 78.02 kg 122/72 mm[Hg] 09/01/2017 Weight Blood Pressure 62.2 kg 122/68 mm[Hg] 07/19/2017 Height Weight 165.1 cm 60.24 kg 07/19/2017 Blood Pressure 120/58 mm[Hg] 12/30/2016 Blood Pressure 122/78 mm[Hg] 12/30/2016 Weight 63.05 kg 08/03/2016 Height Weight 165.1 cm 68.95 kg 08/03/2016 Blood Pressure 112/60 mm[Hg] 04/22/2016 Weight Blood Pressure 82.69 kg 130/90 mm[Hg] 02/07/2016 Blood Pressure 122/72 mm[Hg] 02/07/2016 Weight 75.75 kg 10/30/2015 Height Weight Blood Pressure 165.1 cm 68.9 kg 130/64 mm[Hg] 09/11/2015 Height Weight 165.1 cm 68.04 kg 09/11/2015 Blood Pressure 140/80 mm[Hg] 09/09/2015 Height Weight Blood Pressure 162.56 cm 68.58 kg 108/64 mm[Hg] 08/14/2015 Weight Blood Pressure 66.9 kg 130/80 mm[Hg] 04/03/2015 Height Weight 166.37 cm 64.91 kg 04/03/2015 Blood Pressure 122/82 mm[Hg] 08/14/2014 Height Weight Blood Pressure 165.1 cm 57.83 kg 110/70 mm[Hg] 06/14/2014 Blood Pressure 136/78 mm[Hg] 06/14/2014 Weight 59.15 kg 03/08/2014 Weight 58.69 kg 03/08/2014 Blood Pressure 116/70 mm[Hg] 02/09/2014 Weight Blood Pressure 58.56 kg 112/74 mm[Hg] 12/08/2013 Weight Blood Pressure 58.97 kg 112/64 mm[Hg] 10/06/2013 Weight Blood Pressure 57.61 kg 116/78 mm[Hg] 08/07/2013 Weight Blood Pressure 57.61 kg 114/64 mm[Hg] 06/21/2013 Weight Blood Pressure 55.54 kg 118/66 mm[Hg] 05/10/2013 Weight Blood Pressure 56.95 kg 122/58 mm[Hg] 05/03/2013 Weight Blood Pressure 57.15 kg 114/70 mm[Hg] 02/24/2013 Weight Blood Pressure 58.06 kg 132/60 mm[Hg] 01/30/2013 Weight Blood Pressure 56.25 kg 118/60 mm[Hg] 01/11/2013 Weight Blood Pressure 57.15 kg 126/70 mm[Hg] 09/15/2012 Weight Blood Pressure 54.39 kg 128/64 mm[Hg] 06/15/2012 Height Weight Blood Pressure 162.56 cm 51.71 kg 118/60 mm[Hg] 03/18/2012 Height Weight Blood Pressure 162.56 cm 52.16 kg 118/68 mm[Hg]
--- OUTSIDE RECORDS SUMMARY | 2020-09-28 10:12 | XMS_ITS | Encounter Summary ---
:2000 Author Care Team Providers Name Role Phone Amira Kim MD Primary Care Provider [phone] Reason for Visit None recorded. Assessment and Plan 1. Routine care ? US, obstetric, transabdomi nal + transvaginal Discussion Note: None recorded.Patient educational handouts: No information available. Plan of Care Reminders Provider Appointments Ob 20 Shanelle Maria 10/22/2020 HIREN Martin 1:40PM Lab None recorded. ? ? Referral None recorded. ? ? Procedures None recorded. ? ? Surgeries None recorded. ? ? Imaging US, Obstetric, No rth [place] Transabdominal + 08/27/2020 Hospital Radiol ogy Transvaginal (Internal) Medications Name Start Date ? ? Augmentin 875 mg-125 mg tablet ? Take 1 tablet every 12 hours by oral route for 10 day s. Flovent HFA 110 mcg/actuation aerosol inhaler ? Inhale 1 puff twice a day by inhalation route. ProAir HFA 90 mcg/actuation aerosol inhaler ? Inhale 2 puffs every 4 hours by inhalation route as n eeded. sertraline 100 mg tablet ? TAKE 1 TABLET BY MOUTH ONCE DAILY Medications Administered None recorded. Vitals Weight Blood Pressure 174 lbs 118/70 mm[Hg] Results Lab Results None recorded. Allergies Code Code System Name Reaction Severity Onset 20240511 RxNorm Motrin Other Moderate 10/04/2015 Rabbit Dander Hives ? ? Problems Name Status Onset Date Source ? Generalized Anxiety Disorder Active 06/30/2018 ? Active 06/13/2020 ? Routine Care Active 08/27/2020 ? Moderate Recurrent Major Depression Active ? History Migraine Active ? History Mild Intermittent Asthma Active ? History Antepartum Hemorrhage Active ? History Abnormal Glucose Tolerance in Mother Active ? History Complicating , Childbirth AND/OR Puerperium Contact Dermatitis Active ? History Acne Active ? History Neck Pain Active ? History Localized Enlarged Lymph Nodes Active ? H istory Procedures Date Name Performed by ? 10/04/2004 Hernia Repair Information not avai lable 08/27/2020 US, Obstetric, Transabdominal + [facility] Radiology (Internal) Transvaginal [address] [place] [address] (Work Place) Vaccine List Vaccine Type DTaP 1998 1998 1998 09/16/1999 04/12/2003 Hep B, adolescent or pediatric 1998 1998 Hib (HbOC) 1998 1998 1998 09/16/1999 influenza, seasonal, injectable, preserv ative free 06/15/2012?0.5 mL 06/21/2013?0.5 mL IPV 1998 1998 09/12/1999 09/16/1999 04/12/2003 MMR 03/21/1999 11/02/2002 Tdap 06/27/2009 03/19/2016?0.5 mL varicella 07/30/1999 08/15/2009 Social History Tobacco Smoking Status Never Smoker Are you currently employed? N Blind or serious difficulty seeing N Not es: decreased. Chewing tobacco none Most Recent Tobacco Use Screening 07/30/2020 Tobacco-years of use 0 Hand Dominance Right Alcohol intake None Live alone or with others? with others Notes: Kavitha es with boyfriend, 2 childre n Animal exposure? Y Notes: 1 dog, 1 r abbit Language Difficulties No Current Method of Control Notes: None Passive smoke exposure? N Hard of hearing or deaf in one or N both ears? 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 Past Encounters 08/27/2020 Acute Maxillary Sinusitis; Acute Frontal Sinusitis; Gildardo Nguyen MD: [address] [place] [phone], Ph. 08/27/2020 Routine Care Shanelle Martin CNM: [address] [place] [phone], Ph. 07/30/2020 Routine Care; Acute Cystitis i n , Antepartum HENRY Hernandez: [address] [place] [phone], Ph. History of Present Illness None recorded. Review of Systems None recorded. Physical Exam None recorded.
--- OUTSIDE RECORDS SUMMARY | 2020-09-28 10:12 | XMS_ITS | Encounter Summary ---
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 1. Routine care Essentially normal exam. S=D. Headaches: increase fluids and rest, magnesium OTC, tylenol, massage. If musc le aches and headaches don't improve, pt to f/u w/PCP. ? CT RNA, qual, PCR, unspeci fied specimen 2. Acute cystitis in , antepartum ? Macrobid 100 mg capsule Discussion Note: None recorded.Patient educational handouts: No information available. Plan of Care Reminders Provider Appointments Ob 20 Shanelle E Candace 10/22/2020 HIREN Martin 1:40PM Lab CT RNA, Qual, Nor th Country PCR, Unspecified Specimen 07/30/2020 Hospit al Lab (Internal) Referral None recorded. ? ? Procedures None recorded. ? ? Surgeries None recorded. ? ? Imaging None recorded. ? ? Medications Name Start Date ? ? Augmentin [...] Administered None recorded. Vitals Weight Blood Pressure 163.4 lbs 122/70 mm[Hg] Results Lab Results None recorded. Allergies [...] 10/04/2004 Hernia Repair Information not avai lable 07/23/2020 US, Obstetric, [facility]St [facility] Radiology (Internal) [address] [place] [address] (Work Place) Vaccine List Vaccine [...] Information) Functional Status No Impairment. Past Encounters 07/30/2020 Routine Care; Acute Cystitis i n , Antepartum Shanelle E Candace Martin, HENRYM: [address] [place] [phone], Ph. History of Present Illness Note: <p>Here for NOB visit.</p> Review of Systems ? Brief BAR STAFF ROS Reported By: Patient Constitutional: Constitutional: no fever, no significant weight loss/gain, fatigue Cardiovascular: Cardiovascular: no chest angelika n, no palpitations, no SOB, no orthopnea, no edema Gastrointestinal: Gastrointestinal: no difficu lty swallowing, no abdominal pain, no bowel movement changes, hear tburn, vomiting; vominting improving Genitourinary: Genitourinary: no hematuria, no abnormal bleeding, no flank pain, no difficulty urinating, no incontinence, no rash, no lesion, no discharge, no vaginal odor, no vaginal itching Psychological: Psychiatric: no depression Musculoskeletal: Musculoskeletal: ; neck pain associated with headaches that have been daily for past 2 weeks Neurologic: Neurologic: ; headaches Notes: <p>
</p> Physical Exam ? Initial OB Reported By: Patient General Appearance: General Appearance: healthy- appearing , well-nourished, no acute distress Skin: Appearance: no rashes Neck: Thyroid: no enlargement, non -tender Lymph Nodes: Palpation: non tender subman dibular nodes; tonsils slightly swollen on palpation Cardiovascular System: Auscultation: RRR, no murmur , no gallops. Legs: no LLE edema, no RLE edema Lungs: Auscultation: no wheezing, n o rales / crackles, no rhonchi Breast: Breast: no skin changes, no abnormal secretions, no discrete/distinct masses Abdomen: Auscultation/Inspection/Palp ation: bowel sounds present, soft, no tenderness/guarding/rebou nd, no CVA tenderness Female Genitalia: Vulva: grossly normal, no le sions. Vagina no abnormal vaginal discharge. Cervix: grossly n ormal, no cervical motion tenderness. Uterus: size levon ropriate for gestational age, regular contour, mobile. Adn exae: no masses palpated, no tenderness Notes: <p>Temp=99.1</p>
--- OUTSIDE RECORDS SUMMARY | 2020-09-28 10:12 | XMS_ITS | Encounter Summary ---
:2000 Author Care Team Providers Name Role Phone Amira Kim MD Primary Care Provider [phone] Reason for Visit None recorded. Assessment and Plan 1. Routine care Discussion Note: None recorded.Patient educational handouts: No information available. Plan of Care Reminders Provider Appointments Ob 20 10/22/2020 Shanelle Maria 1:40PM HIREN Martin Lab None ? ? recorded. Referral None ? ? recorded. Procedures None ? ? recorded. Surgeries None ? ? recorded. Imaging None ? ? recorded. Medications Name Start Date ? ? Augmentin [...] ONCE DAILY Medications Administered None recorded. Vitals Height Weight BMI Blood Pressure 5 ft 5 in 180.6 lbs 30.1 kg/m2 124/70 mm[Hg] Results Lab Results None recorded. Allergies [...] avai lable 08/27/2020 US, Obstetric, Transabdominal + [facility] Radiology (Internal) Transvaginal [address] [place] [address] (Work Place) Vaccine List Vaccine [...] Information) Functional Status No Impairment. Past Encounters 09/24/2020 Routine Care Shanelle Martin CNM: [address] [place] [address], Ph. 08/27/2020 Acute Maxillary Sinusitis; Acute Frontal Sinusitis; Gildardo Nguyen MD: [address] [place] [address], Ph. 08/27/2020 Routine Care Shanelle Martin CNM: [address] [place] [address], Ph. History of Present Illness None recorded. Review of Systems None recorded. Physical Exam None recorded.
--- OUTSIDE RECORDS SUMMARY | 2020-09-28 10:12 | XMS_ITS | Encounter Summary ---
:2000 Author Care Team Providers Name Role Phone Amira Kim MD Primary Care Provider [phone] Reason for Visit Swollen gland; fever Assessment and Plan 1. Acute maxillary sinusitis Given her duration and severit y of symptoms with low-grade fever and failure to improve, will pursue antimicr obial intervention. Symptomatic treatment and conservative measures advised. Reassuran ce provided. Medication safety in personnel placement specialist cautions were read to the p atient ? Augmentin 875 mg-125 mg ta blet 2. Acute frontal sinusitis Symptomatic treatment and con servative measures advised. Reassurance provided . Medication safety in personnel placement specialist cautions were read to the patient 3. Given her duration and severi ty of symptoms with low-grade fever and failure to improve, will pursue antimicrobial intervention. Symptomatic treatment and conservative measures advised. Reass urance provided. Medication safety in pr egnancy personnel placement specialist cautions were read to the patient Discussion Note: None recorded.Patient educational handouts: No [...] BMI Blood Pressure 5 ft 5 in 174 lbs 9.6 oz 29.1 kg/m2 114/70 mm[Hg] Results Lab Results None recorded. Allergies [...] avai lable 08/27/2020 US, Obstetric, Transabdominal + [facility] Radiology (Internal) Transvaginal [address] [place] [address] (Work Place) Vaccine List Vaccine [...] Acute Frontal Sinusitis; Gildardo Nguyen MD: [address] [place] [address], Ph. 08/27/2020 Routine Care Shanelle Martin CNM: [address] [place] [address], Ph. 07/30/2020 Routine Care; Acute Cystitis i n , Antepartum Shanelle Martin CNM: [address] [place] [address], Ph. History of Present Illness ? Fever Reported By: Patient HPI: Severity: worsening. Duratio n: intermittent. Context: no recent travel, no tick/insect bites, no new medications, no animal exposure, no recent surgery/procedure, no recent dental work, no IV drug use, no immunocompromise. Associated Symptoms: no rash, no diarrhea, no sore throat, night sweats, headac he, cold symptoms, vomiting, rapid or irregular heartbeat (palpita tions), generalized pain, shortness of breath Note: <p>Patient reports having swollen glands on both sides of her neck. Reports they both hurt but her throat does not hurt. In addition she is experiencing severe bilateral frontal and maxillary sinus pain for the past 6 weeks with low-grade fever</p> Review of Systems ? Notes: <p>Review of systems as prev iously described and otherwise negative for 10 organ systems</p> Physical Exam ? Notes: <p>General: Alert. Not in ac nguyễn distress.
HEENT: NCAT. No Nystagmus. Pupils equal, round and reactive. B ilateral frontal and maxillary sinus tenderness to light percussion
Neck: Wi thout adenopathy or thyromegaly, Trachea midline.
Lungs: Clear to auscultation bilaterally. Normal breath sounds without wheezing, rhonchi, o r rales
Heart: Regular without murmurs rubs or gallops
Abdomen: Soft, no ndistended, nontender.
Peripheral Vascular: No edema.
Neurologic: Awake alert and oriented. Cranial nerves II-XII intact. EOMI.
Musculoskeletal: No rmal range of motion.
Skin: Normal Moisture. Warm.
Lymphatic: No appre ciated adenopathy
Psychiatric: Appropriate</p>
[2020-09-28 11:08] LABS: Abs Immature Grans 0.07 10^3/uL (0.0-0.06); Absolute Basophil Count 0.01 10^3/uL (0.0-0.2); Absolute Eosinophil Count 0.27 10^3/uL (0.0-0.7); Absolute Lymphocyte Count 1.81 10^3/uL (1.2-3.4); Absolute Monocyte Count 0.58 10^3/uL (0.1-0.8); Absolute Neutrophil Count 7.64 10^3/uL (1.2-6.7); Basophils % 0.1; Eosinophils % 2.6; HCT 38.9 % (36.0-46.0); HGB 13.1 g/dL (11.2-15.7); Immature Grans % 0.7; Lymphocytes % 17.4; MCHC 33.7 % (32.0-36.0); MPV 11.8 fL (8.0-11.0); Monocytes % 5.6; Neutrophils % 73.6; Nucleated RBC 0 %; Platelet Count 178 10^3/uL (130-400); RBC 4.37 10^6/uL (3.93-5.22); RDW 12.9 % (11.7-14.6); RDW-SD 41.9 fL; WBC 10.38 10^3/uL (4.4-10.8)
[2020-09-28] MEDS: Acetaminophen 500 MG TAB 1000 MG PO (11:19)
[2020-09-28 11:22] LABS: ALT 15 U/L (14-59); AST 14 U/L (15-37); Albumin 3.1 g/dL (3.4-5.0); Alkaline Phosphatase 69 U/L (46-116); Anion Gap 8.5 mmol/L (3-11); BUN 9 mg/dL (7-18); Bilirubin, Total 0.3 mg/dL (0.2-1.0); CO2 22.5 mmol/L (21.0-32.0); CREATININE 0.62 mg/dL (0.55-1.02); Calcium 9.3 mg/dL (8.5-10.1); Chloride 105 mmol/L (98-107); Glucose 76 mg/dL (74-106); Potassium 4.5 mmol/L (3.5-5.1); Sodium 136 mmol/L (136-145); Total Protein 6.9 g/dL (6.4-8.2)
[2020-09-28 11:38] LABS: Bilirubin Negative (Negative); Blood Negative (Negative); Clarity Sl Cloudy (Clear); Glucose Negative (Negative); Ketones Negative (Negative); Leukocyte Esterase Negative (Negative); Nitrite Negative (Negative); Specific Gravity 1.025 (1.005-1.025); Urobilinogen 0.2 EU/dL (Up TO 0.2); pH 6.5 (5-8)
--- NOTE | 2020-09-28 12:49 | ED.GENADUL_ITS ---
Discharge Plan Disposition Patient Disposition: HOME Condition: Stable Discharge Details Clinical Impression: Pharyngitis, Cephalgia Primary Care Provider: Amira Kim ED Provider: Joshua Cisneros Home Meds and New Rx's Prescriptions: Continued sertraline 100 mg tablet 100 mg PO DAILY RF: 0 Discharge Instructions Instructions: Pharyngitis (ED), General Headache (ED) Additional Instructions: Work-up here in the ER did not reveal any obvious emergent process. Plenty of fluids to avoid dehydration. [id number] Tylenol as directed for discomfort. Covid test is pending, I do recommend quarantining until a negative test has resulted. Please contact your PROTECTIVE OFFICER on Wednesday for prompt outpatient reevaluation. Discuss your ongoing symptoms for the past 3 months as well as your symptoms that have been present with all 3 pregnancies. I also recommend following up with your primary care provider, as we discussed outpatient ENT referral may be indicated. Discharge Data Discharge Date/Time-TO BE ENTERED AT DEPARTURE: 09/28/20 13:21 Medical Decision Making 20-year-old female presents with sore throat, headache, sinus pressure that has been present for 3 months, did not respond to antibiotics, and has been present in her other 2 pregnancies. She is G3, P2, approximately 22 weeks gravid. She does have good PROTECTIVE OFFICER care. Clinically she appears well, nontoxic. She is afebrile, O2 sats are 96% on room air, blood pressure 127/76, pulse in the 90s. Given her current , symptoms being present for 3 months, I do believe obtaining routine laboratory values, getting IV fluid, p.o. Tylenol and reassessing is perfectly reasonable. We will also obtain rapid strep test. C linically I see no obvious bacterial source that would require antibiotics. Rapid strep negative. Laboratory values are otherwise unremarkable for obvious emergent process. Normal white count. Electrolytes are unremarkable. Creatinine 0.60 with a GFR greater than 60. No protein in her urine. Upon reevaluation patient remains normotensive. Reports improvement with the Tylenol and IV fluid. She clinically appears well, nontoxic. We discussed that unfortunately medications we would typically treat her with are not options given she is . Recommend [id number] Tylenol for discomfort. I recommend she contact her PROTECTIVE OFFICER team Wednesday for prompt outpatient reevaluation and discussion of her ongoing symptoms in both this and all 3 of her pregnancies. She continues to be concerned about her tonsils. Clinically she is able to manage her secretions, speak without difficulty, airway is patent. Discussed that eventual referral to ENT may be indicated if her symptoms persist but that there is nothing to do emergently speaking. Patient is agreeable to this plan. We discussed given her sore throat, nasal congestion, etc., we would test for Covid. Refuses Covid swab Patient appears well, nontoxic and is ambulatory upon discharge. No additional questions or concerns upon discharge Medical Records Medical records reviewed: Yes I reviewed the patient's medical records. Lab Data Lab results reviewed: Yes I reviewed the patient's lab results. Lab results narrative: 09/28/20 11:45 Pharynx Streptococcus Screen (JENNY) - Pending Laboratory Tests Range/Units 09/28/20 09/28/20 09/28/20 11:00 11:00 11:30 WBC (4.4-10.8) 10^3/uL 10.38 RBC (3.93-5.22) 10^6/uL 4.37 Hgb (11.2-15.7) g/dL 13.1 Hct (36.0-46.0) % 38.9 MCV (80-95) fL 89.0 MCH (27.0-33.0) pg 30.0 MCHC (32.0-36.0) % 33.7 RDW (11.7-14.6) % 12.9 Plt Count (130-400) 10^3/uL 178 MPV (8.0-11.0) fL 11.8 H Immature Gran % 0.7 Neutrophils % 73.6 Lymphocytes % 17.4 Monocytes % 5.6 Eosinophils % 2.6 Basophils % 0.1 Nucleated RBC % % 0 Absolute Neutrophils (1.2-6.7) 10^3/uL 7.64 H Absolute Lymphocytes (1.2-3.4) 10^3/uL 1.81 Absolute Monocytes (0.1-0.8) 10^3/uL 0.58 Absolute Eosinophils (0.0-0.7) 10^3/uL 0.27 Absolute Basophils (0.0-0.2) 10^3/uL 0.01 Sodium (136-145) mmol/L 136 Potassium (3.5-5.1) mmol/L 4.5 Chloride (98-107) mmol/L 105 Carbon Dioxide (21.0-32.0) mmol/L 22.5 Anion Gap (3-11) mmol/L 8.5 BUN (7-18) mg/dL 9 Creatinine (0.55-1.02) mg/dL 0.62 Estimated GFR/1.73 m2 (mL/min/1.73m2) >= 60.00 Glucose (74-106) mg/dL 76 Calcium (8.5-10.1) mg/dL 9.3 Total Bilirubin (0.2-1.0) mg/dL 0.3 AST (15-37) U/L 14 L ALT (14-59) U/L 15 Alkaline Phosphatase (46-116) U/L 69 Total Protein (6.4-8.2) g/dL 6.9 Albumin (3.4-5.0) g/dL 3.1 L Urine Color (Yellow) Yellow Urine Clarity (Clear) Sl cloudy Urine pH (5-8) 6.5 Ur Specific [place] (1.005-1.025) 1.025 Urine Protein (Negative) mg/dL Negative Urine Ketones (Negative) mg/dL Negative Urine Blood (Negative) Negative Urine Nitrite (Negative) Negative Urine Bilirubin (Negative) Negative Urine Urobilinogen (Up TO 0.2) EU/dL 0.2 Ur Leukocyte Esterase (Negative) Negative Urine Glucose (Negative) mg/dL Negative SARS-CoV-2 (PCR) Nasopharyn COVID-19 PCR Ref Test Perform Site Range/Units 09/28/20 13:10 WBC (4.4-10.8) 10^3/uL RBC (3.93-5.22) 10^6/uL Hgb (11.2-15.7) g/dL Hct (36.0-46.0) % MCV (80-95) fL MCH (27.0-33.0) pg MCHC (32.0-36.0) % RDW (11.7-14.6) % Plt Count (130-400) 10^3/uL MPV (8.0-11.0) fL Immature Gran % Neutrophils % Lymphocytes % Monocytes % Eosinophils % Basophils % Nucleated RBC % % Absolute Neutrophils (1.2-6.7) 10^3/uL Absolute Lymphocytes (1.2-3.4) 10^3/uL Absolute Monocytes (0.1-0.8) 10^3/uL Absolute Eosinophils (0.0-0.7) 10^3/uL Absolute Basophils (0.0-0.2) 10^3/uL Sodium (136-145) mmol/L Potassium (3.5-5.1) mmol/L Chloride (98-107) mmol/L Carbon Dioxide (21.0-32.0) mmol/L Anion Gap (3-11) mmol/L BUN (7-18) mg/dL Creatinine (0.55-1.02) mg/dL Estimated GFR/1.73 m2 (mL/min/1.73m2) Glucose (74-106) mg/dL Calcium (8.5-10.1) mg/dL Total Bilirubin (0.2-1.0) mg/dL AST (15-37) U/L ALT (14-59) U/L Alkaline Phosphatase (46-116) U/L Total Protein (6.4-8.2) g/dL Albumin (3.4-5.0) g/dL Urine Color (Yellow) Urine Clarity (Clear) Urine pH (5-8) Ur Specific [place] (1.005-1.025) Urine Protein (Negative) mg/dL Urine Ketones (Negative) mg/dL Urine Blood (Negative) Urine Nitrite (Negative) Urine Bilirubin (Negative) Urine Urobilinogen (Up TO 0.2) EU/dL Ur Leukocyte Esterase (Negative) Urine Glucose (Negative) mg/dL SARS-CoV-2 (PCR) Cancelled Nasopharyn COVID-19 PCR Cancelled Ref Test Perform Site Cancelled HPI General Mode of arrival: ambulatory . Date/Time Provider Initiated Documentation: 09/28/20 09:58 . Limitations to Documentation: no limitations . Information obtained by: patient . HPI Narrative: 20-year-old female G3, P2, approximately 22 weeks, has normal outpatient PROTECTIVE OFFICER care. Patient presents to the ER stating that she has a sore throat, specifically concerned about her tonsils, global mild headache, sinus pressure, which has been present in all 3 of her pregnancies. She actually brought this to the attention of her PROTECTIVE OFFICER team approximately 1 month ago, subsequently followed up with her primary care provider and was placed on antibiotics for potential sinus infection. She sta snow that the antibiotics did not really make a difference. She states that she thinks that she needs her tonsils out and that is likely causing all of her symptoms. She is very frustrated because this has been present in all of her pregnancies and she just wanted to stop. She has not taken any [id number]-[id number] medication for her symptoms. She denies fever, ear pain, difficulty speaking or swallowing, cough, shortness of breath, abdominal pain. She reports that she has had some nausea and vomiting associated with her but there is no change with this over the past few days. Denies any back pain, dysuria, hematuria, vaginal bleeding or discharge. Denies skin rash. Related Data Home Medications Medication Instructions Recorded Confirmed sertraline 100 mg PO DAILY 09/28/20 09/28/20 Allergies Allergy/AdvReac Type Severity Reaction Status Date / Time ibuprofen Allergy Unverified 09/28/20 10:06 rabbits Allergy Uncoded 09/28/20 10:06 General Stated Complaint: GenMedical ASIA: 2 Review of Systems Constitutional Constitutional: Denies fatigue, Denies fever(s), Reports headache(s) and Denies weakness Eyes Eyes: Denies change in vision ENT Ears, Nose, Mouth, and Throat: Denies otalgia, Reports headache(s), Denies neck pain and Reports sore throat Cardiovascular Cardiovascular: Denies chest pain and Denies dyspnea Respiratory Respiratory: Denies cough and Denies dyspnea Gastrointestinal Gastrointestinal: Denies abdominal pain, Denies constipation, Denies diarrhea, Reports nausea and Reports vomiting Genitourinary Genitourinary: Denies abnormal vaginal bleeding, Denies hematuria, Denies dysuria and Denies vaginal discharge Musculoskeletal Musculoskeletal: Denies back pain, Denies neck pain, Denies numbness and Denies tingling Integumentary/Breasts Skin/Breast: Denies rash Neurologic Neurologic: Reports headache(s), Denies numbness, Denies tingling and Denies weakness Endocrine Endocrine: Denies fatigue [facility] Social History Smoking/Tobacco Use Status: Never Smoking risk assessment performed?: Yes Alcohol Intake: never Drug use: Occasionally Substance use type: marijuana Do you feel safe at home: Yes Do you feel safe in your relationship?: Yes Exam Const General: cooperative, healthy appearing, comfortable and no acute distress Orientation: alert, awake and oriented x3 [facility]: normal to inspection, normocephalic and atraumatic Ears: external ears normal, TM's normal bilaterally and EAC's normal General nose exam: external nose normal, nares normal and nasal mucous membranes and turbinates normal Face and sinus: normal facial exam Mouth: oral mucosae normal and moist mucous membranes Throat: posterior oropharynx normal, tonsils normal and uvula midline Eyes General: appearance normal, both eyes and all related structures Conjunctivae: conjunctivae normal Sclera: sclerae normal Neck Neck: normal visual inspection, full ROM, no lymphadenopathy, no meningeal signs, trachea midline, supple and nontender Resp Effort & Inspection: normal respiratory effort and able to speak in complete sentences Auscultation: clear to auscultation bilaterally Cardio Rate: regular rate Rhythm: regular rhythm GI Inspection: normal to inspection (Consistent with 22 weeks gravid) Palpation: soft and nontender Auscultation: normal bowel sounds Back/Spine/Pelvis Back: No back tenderness Skin General skin exam: no rashes or lesions noted Neuro General: patient alert, patient awake, moves all extremities and no focal motor deficits Cognition: normal cognition Speech: speech normal Gait: normal gait Sensory Exam: no sensory deficits noted Extrem General: normal to inspection, full ROM, capillary refill normal, no pedal edema and no calf tenderness Psych Appearance: grossly normal Mental Status: mental status grossly normal Course Vital Signs Vital signs: Vital Signs Temperature 36.7 C 09/28/20 10:00 Pulse 105 H 09/28/20 10:00 Respiratory Rate 16 09/28/20 10:00 Blood Pressure 127/76 09/28/20 10:00 Pulse Oximetry 96 09/28/20 10:00 Temperature 36.7 C 09/28/20 10:00 Temperature Source Skin 09/28/20 10:00 Pulse 105 H 09/28/20 10:00 Respiratory Rate 16 09/28/20 10:00 Respiratory Effort Non-Labored 09/28/20 11:19 Respiratory Depth Normal 09/28/20 11:19 Blood Pressure 127/76 09/28/20 10:00 Blood Pressure Position Sitting 09/28/20 10:00 Pulse Oximetry 96 09/28/20 10:00 Oxygen Delivery Method Room Air 09/28/20 10:00 Oxygen Flow Rate 0 09/28/20 10:00 Pain Level 10 09/28/20 10:00 Comment 09/28/20 10:00 Lab/Test Results Lab/Test Results: Laboratory Tests Range/Units 09/28/20 09/28/20 09/28/20 11:00 11:00 11:30 WBC (4.4-10.8) 10^3/uL 10.38 RBC (3.93-5.22) 10^6/uL 4.37 Hgb (11.2-15.7) g/dL 13.1 Hct (36.0-46.0) % 38.9 MCV (80-95) fL 89.0 MCH (27.0-33.0) pg 30.0 MCHC (32.0-36.0) % 33.7 RDW (11.7-14.6) % 12.9 Plt Count (130-400) 10^3/uL 178 MPV (8.0-11.0) fL 11.8 H Immature Gran % 0.7 Neutrophils % 73.6 Lymphocytes % 17.4 Monocytes % 5.6 Eosinophils % 2.6 Basophils % 0.1 Nucleated RBC % % 0 Absolute Neutrophils (1.2-6.7) 10^3/uL 7.64 H Absolute Lymphocytes (1.2-3.4) 10^3/uL 1.81 Absolute Monocytes (0.1-0.8) 10^3/uL 0.58 Absolute Eosinophils (0.0-0.7) 10^3/uL 0.27 Absolute Basophils (0.0-0.2) 10^3/uL 0.01 Sodium (136-145) mmol/L 136 Potassium (3.5-5.1) mmol/L 4.5 Chloride (98-107) mmol/L 105 Carbon Dioxide (21.0-32.0) mmol/L 22.5 Anion Gap (3-11) mmol/L 8.5 BUN (7-18) mg/dL 9 Creatinine (0.55-1.02) mg/dL 0.62 Estimated GFR/1.73 m2 (mL/min/1.73m2) >= 60.00 Glucose (74-106) mg/dL 76 Calcium (8.5-10.1) mg/dL 9.3 Total Bilirubin (0.2-1.0) mg/dL 0.3 AST (15-37) U/L 14 L ALT (14-59) U/L 15 Alkaline Phosphatase (46-116) U/L 69 Total Protein (6.4-8.2) g/dL 6.9 Albumin (3.4-5.0) g/dL 3.1 L Urine Color (Yellow) Yellow Urine Clarity (Clear) Sl cloudy Urine pH (5-8) 6.5 Ur Specific [place] (1.005-1.025) 1.025 Urine Protein (Negative) mg/dL Negative Urine Ketones (Negative) mg/dL Negative Urine Blood (Negative) Negative Urine Nitrite (Negative) Negative Urine Bilirubin (Negative) Negative Urine Urobilinogen (Up TO 0.2) EU/dL 0.2 Ur Leukocyte Esterase (Negative) Negative Urine Glucose (Negative) mg/dL Negative
[2020-09-28 13:15] VITALS: BP 121/63; PULSE 78; RESP 17; TEMP 36.6; O2SAT 99
--- NOTE | 2020-09-28 13:20 | NUR.NOTE ---
pt declined covid test. provider aware:
== END 2020-09-28 13:21 | disposition home or self-care (01) ==
PROVIDERS: Emergency Provider Physician Assistant; PCP Family Medicine
DX: O26.892 Other specified pregnancy related conditions, second trimester (principal); J02.9 Acute pharyngitis, unspecified; R51.9 Headache, unspecified
CPT/HCPCS: 80053; 87880; 99283; U0003; 81003; 85025; 87081; 99282

== ENCOUNTER 2021-05-11 18:20 | Emergency (ER) | payer MEDICAID, SELFPAY ==
[2021-05-11 18:28] VITALS: BP 135/77; PULSE 81; RESP 16; TEMP 36.9; O2SAT 97
--- NOTE | 2021-05-11 18:58 | ED.GENADUL_ITS ---
Discharge Plan Disposition Patient Disposition: HOME Condition: Good Discharge Details Clinical Impression: Cellulitis Primary Care Provider: Amira Kim ED Provider: Jacklyn Peters Home Meds and New Rx's Prescriptions: New cephalexin 500 mg capsule 500 mg PO Q6H 7 Days Qty: 28 RF: 0 Continued sertraline 100 mg tablet 100 mg PO DAILY RF: 0 Discharge Instructions Instructions: Cellulitis (ED) Additional Instructions: Take antibiotic until completed Return earlier should you have spreading redness, fever, worsening pain Yogurt daily while on antibiotic Medical Decision Making Keflex as prescribed until completed Instructed to keep wound clean and dry Patient discharged home in stable condition with stable vitals Medical Records Medical records reviewed: Yes I reviewed the patient's medical records. HPI General Mode of arrival: ambulatory . Date/Time Provider Initiated Documentation: 05/11/21 18:55 . Limitations to Documentation: no limitations . Information obtained by: patient . HPI Narrative: This 20-year-old female presents with redness and pain to her tattoo site. She denies any additional complaints. She states that this was placed approximately a week and a half ago. She denies any fever or chills. She denies any chance of . Related Data Home Medications Medication Instructions Recorded Confirmed sertraline 100 mg PO DAILY 09/28/20 05/11/21 cephalexin 500 mg PO Q6H 7 Days #28 cap 05/11/21 Previous Rx's Medication Instructions Recorded cephalexin 500 mg PO Q6H 7 Days #28 cap 05/11/21 Allergies Allergy/AdvReac Type Severity Reaction Status Date / Time ibuprofen Allergy Unverified 05/11/21 18:31 rabbits Allergy Uncoded 05/11/21 18:31 General Stated Complaint: RashLesion ASIA: 4 Review of Systems Narrative: Review of systems negative x3 aside from where indicated in HPI PFSH Social History Smoking/Tobacco Use Status: Never Smoking risk assessment performed?: Yes Alcohol Intake: never Drug use: Occasionally Substance use type: does not use and marijuana Do you feel safe at home: Yes Do you feel safe in your relationship?: Yes Exam Skin Other: Tattoo noted to left hip, erythema surrounding site, new crepitus, no induration, no fluctuance, no lymphangitis Course Vital Signs Vital signs: Vital Signs Temperature 36.9 C 05/11/21 18:28 Pulse 81 05/11/21 18:28 Respiratory Rate 16 05/11/21 18:28 Blood Pressure 135/77 05/11/21 18:28 Pulse Oximetry 97 05/11/21 18:28 Temperature 36.9 C 05/11/21 18:28 Temperature Source Skin 05/11/21 18:28 Pulse 81 05/11/21 18:28 Respiratory Rate 16 05/11/21 18:28 Respiratory Effort Non-Labored 05/11/21 18:28 Blood Pressure 135/77 05/11/21 18:28 Blood Pressure Position Sitting 05/11/21 18:28 Pulse Oximetry 97 05/11/21 18:28 Oxygen Delivery Method Room Air 05/11/21 18:28 Oxygen Flow Rate 0 05/11/21 18:28 Pain Level 5 05/11/21 18:28
[2021-05-11] MEDS: Cephalexin 500 MG CAP PO (19:08)
== END 2021-05-11 19:00 | disposition home or self-care (01) ==
PROVIDERS: Emergency Provider Physician Assistant; PCP Family Medicine
DX: L03.116 Cellulitis of left lower limb (principal)
CPT/HCPCS: 99283

== ENCOUNTER 2021-06-11 20:19 | Outpatient (CLI) | payer MEDICAID, SELFPAY ==
[2021-06-11 15:14] LABS: Abs Immature Grans 0.02 10^3/uL (0.0-0.06); Absolute Basophil Count 0.05 10^3/uL (0.0-0.2); Absolute Eosinophil Count 0.42 10^3/uL (0.0-0.7); Absolute Lymphocyte Count 2.46 10^3/uL (1.2-3.4); Absolute Monocyte Count 0.48 10^3/uL (0.1-0.8); Absolute Neutrophil Count 3.35 10^3/uL (1.2-6.7); Basophils % 0.7; Eosinophils % 6.2; HCT 45.6 % (36.0-46.0); HGB 14.8 g/dL (11.2-15.7); Immature Grans % 0.3; Lymphocytes % 36.3; MCH 28.1 pg (27.0-33.0); MCHC 32.5 % (32.0-36.0); MCV 86.7 fL (80-95); MPV 11.2 fL (8.0-11.0); Monocytes % 7.1; Neutrophils % 49.4; Nucleated RBC 0 %; Platelet Count 297 10^3/uL (130-400); RBC 5.26 10^6/uL (3.93-5.22); RDW-SD 40.9 fL; WBC 6.78 10^3/uL (4.4-10.8)
[2021-06-11 16:00] LABS: Hemoglobin A1C 5.2 % (<5.7)
[2021-06-11 16:31] LABS: Magnesium 2.1 mg/dL (1.8-2.4)
[2021-06-11 16:38] LABS: ALT 29 U/L (14-59); AST 12 U/L (15-37); Albumin 4.3 g/dL (3.4-5.0); Alkaline Phosphatase 98 U/L (46-116); Anion Gap 11.2 mmol/L (3-11); BUN 14 mg/dL (7-18); Bilirubin, Total 0.2 mg/dL (0.2-1.0); CO2 25.8 mmol/L (21.0-32.0); Calcium 9.5 mg/dL (8.5-10.1); Calculated LDL 116 mg/dL (<100); Chloride 101 mmol/L (98-107); Cholesterol 186 mg/dL (<200); Ferritin 11 ng/mL (8-252); Folate 14.3 ng/mL (8.6-20.0); Glucose 125 mg/dL (74-106); HDL Cholesterol 53 mg/dL (40-60); Potassium 4.4 mmol/L (3.5-5.1); Sodium 138 mmol/L (136-145); TSH 2.08 uIU/mL (0.36-3.74); Total Protein 7.7 g/dL (6.4-8.2); Triglyceride 87 mg/dL (<150); Vitamin B12 549 pg/mL (193-986)
[2021-06-11 17:43] LABS: C-Reactive Protein 0.12 mg/dL (0.0-0.3)
[2021-06-11 19:03] LABS: HCG Qual (Serum) Negative
[2021-06-11 21:36] LABS: T3,Free 3.7 pg/mL (2.8-5.3)
[2021-06-12 01:30] LABS: Vitamin D 25 Total 34.7 ng/mL (30-100)
[2021-06-12 15:17] LABS: FREE T4 0.77 ng/dL (0.76-1.46)
== END 2021-06-11 20:20 | disposition home or self-care (01) ==
LOC: LBO 20:30
PROVIDERS: PCP Family Medicine; Visit Provider Psychiatry & Neurology Psychiatry
DX: F32.1 Major depressive disorder, single episode, moderate (principal); Z79.899 Other long term (current) drug therapy
CPT/HCPCS: 36415; 80053; 80061; 82306; 82607; 82728; 82746; 83036; 83735; 84439; 84443; 84481; 84703; 85025; 86140

== ENCOUNTER 2021-09-24 15:35 | Emergency (ER) | payer MEDICAID, SELFPAY ==
[2021-09-24 15:39] VITALS: BP 130/85; PULSE 97; RESP 12; TEMP 36.7; O2SAT 99
[2021-09-24 16:07] LABS: Bilirubin Negative (Negative); Blood Trace-lysed (Negative); Clarity Clear (Clear); Glucose Negative (Negative); Ketones Negative (Negative); Leukocyte Esterase Negative (Negative); Nitrite Negative (Negative); Urobilinogen 0.2 EU/dL (Up TO 0.2)
[2021-09-24 16:19] LABS: Bacteria Rare HPF (Negative); C & S Indicated? No; Casts Negative LPF (Negative); Crystals Negative HPF (Negative); Epithelial Cells Moderate HPF (Negative); Mucus Negative (Negative); RBC 0-2 HPF (0-2); WBC 0-2 HPF (0-5)
--- NOTE | 2021-09-24 16:40 | DI.CT_ITS ---
Exam(s) CT ABDOMEN PELVIS W EXAM: CT ABDOMEN PELVIS W CLINICAL HISTORY: abd pain, rectal bleeding. TECHNIQUE: Imaging Protocol: Axial computed tomography images with coronal and sagittal reformatted images were created and reviewed CONTRAST MATERIAL: Intravenous: Omnipaque 350 Contrast volume:100 ml Oral: / no COMPARISON: No exams were available for comparison FINDINGS: ABDOMEN: Lung Bases: Normal where visualized. Liver: Normal density. No measurable mass. Gallbladder and biliary tract: No radiodense calculus or dilation. Pancreas: Normal density, no abnormal calcifications or inflammatory process. Spleen: Normal. Kidneys: Normal size, contour and axis. No radiodense stones or obstructive uropathy. No masses seen. Adrenal glands: No masses seen. Abdominal Aorta: Abdominal portion non-dilated. Soft tissues: Rectus diastasis. PELVIS: Bladder: No gross wall thickening. No calculi.No focal mass. Bowel: The transverse, descending colon through rectum are decompressed. The bowel is not well evalu ated without oral contrast. No evidence of obstruction. Question minimal wall thickening proximal t ransverse colon. No surrounding stranding. No small bowel dilatation or wall thickening. Stomach u nremarkable.. Appendix normal. Peritoneal cavity: No ascites, collection or mesenteric inflammatory response. Bones: Within normal limits for age. Reproductive organs: Within normal limits. Lymph nodes: Unremarkable. Impression: Colon is mainly decompressed. There is a complex questionable area of wall thickening proximal trans verse colon. RADIATION DOSE DELIVERED: 980.25mGy.cm Total DLP DATA REPOSITORY: All CT scans at this facility are submitted to the National Radiology Data Registry (NRDR) Dose Index Registry (DIR) with the [employer] ([employer]). RADIATION OPTIMIZATION: All CT scans at this facility use at least one of these dose optimization te chniques: automated exposure control; mA and/or kV adjustment per patient size (includes targeted exa ms where dose is matched to clinical indication); or iterative reconstruction.
[2021-09-24 16:50] LABS: Abs Immature Grans 0.03 10^3/uL (0.0-0.06); Absolute Basophil Count 0.03 10^3/uL (0.0-0.2); Absolute Eosinophil Count 0.22 10^3/uL (0.0-0.7); Absolute Lymphocyte Count 2.16 10^3/uL (1.2-3.4); Absolute Monocyte Count 0.47 10^3/uL (0.1-0.8); Absolute Neutrophil Count 4.09 10^3/uL (1.2-6.7); Basophils % 0.4; Eosinophils % 3.1; HCT 43.8 % (36.0-46.0); HGB 14.5 g/dL (11.2-15.7); Immature Grans % 0.4; Lymphocytes % 30.9; MCH 28.9 pg (27.0-33.0); MCHC 33.1 % (32.0-36.0); MCV 87.3 fL (80-95); MPV 11.3 fL (8.0-11.0); Monocytes % 6.7; Neutrophils % 58.5; Nucleated RBC 0 %; Platelet Count 264 10^3/uL (130-400); RBC 5.02 10^6/uL (3.93-5.22); RDW 13.1 % (11.7-14.6); RDW-SD 41.7 fL
[2021-09-24] MEDS: Omnipaque 350 MG/ML 100 ML BTL IJ (16:53)
[2021-09-24 17:06] LABS: ALT 20 U/L (14-59); AST 11 U/L (15-37); Albumin 4.5 g/dL (3.4-5.0); Alkaline Phosphatase 89 U/L (46-116); Anion Gap 10.7 mmol/L (3-11); BUN 17 mg/dL (7-18); Bilirubin, Total 0.2 mg/dL (0.2-1.0); CO2 25.3 mmol/L (21.0-32.0); CREATININE 0.7 mg/dL (0.55-1.02); Calcium 9.2 mg/dL (8.5-10.1); Chloride 103 mmol/L (98-107); Glucose 95 mg/dL (74-106); Potassium 3.9 mmol/L (3.5-5.1); Sodium 139 mmol/L (136-145); Total Protein 8.1 g/dL (6.4-8.2)
[2021-09-24] MEDS: Normal Saline 1,000 ML 1000 ML IV (17:06)
[2021-09-24] MEDS: Ondansetron 4 MG/2 ML VIAL IVP (17:07)
--- NOTE | 2021-09-24 17:15 | DI.VRAD_ITS ---
PROCEDURE INFORMATION: Exam: CT Abdomen And Pelvis With Contrast Exam date and time: 09/24/2021 4:37 PM Age: 21 years old Clinical indication: Other: Abd pain, rectal bleeding TECHNIQUE: Imaging protocol: Computed tomography of the abdomen and pelvis with contrast. Contrast material: OMNIPAQUE 350; Contrast volume: 100 ml; Contrast route: INTRAVENOUS (IV); COMPARISON: No relevant prior studies available. FINDINGS: Lungs: The visualized lung bases are clear. Liver: Normal. No mass. Gallbladder and bile ducts: Normal. No calcified stones. No ductal dilation. Pancreas: Normal. No ductal dilation. Spleen: Normal. No splenomegaly. Adrenal glands: Normal. No mass. Kidneys and ureters: Normal. No hydronephrosis. Stomach and bowel: Subtle focal mucosal enhancement in the mid transverse colon best seen on series 5, image 17 and series 4, image 39. Relatively decompressed mid transverse to left hemicolon without significant wall thickening or mucosal enhancement. Appendix: Appendix is normal in caliber. No periappendiceal edema. No findings to suggest acute appendicitis. Intraperitoneal space: Physiologic pelvic free fluid. Vasculature: Unremarkable. No abdominal aortic aneurysm. Lymph nodes: Unremarkable. No enlarged lymph nodes. Urinary bladder: Unremarkable as visualized. Reproductive: Unremarkable as visualized. Bones/joints: Unremarkable. No acute fracture. Soft tissues: Mild rectus diastasis and a fat containing umbilical hernia. The adjacent bowel loops are noninflamed. No bowel wall thickening or bowel distress. IMPRESSION: Subtle mucosal enhancement of the mid transverse colon proximal to the remainder of the decompressed left hemicolon. No colonic distension or evidence for obstruction. Findings may represent physiologic decompression or subtle early signs ulcerative colitis. Correlate with any history of inflammatory bowel disease. Dictated and Authenticated by: Ever Kwok MD. Ordering:ALDO Galeano MD
--- NOTE | 2021-09-24 17:35 | ED.GENADUL_ITS ---
Discharge Plan Disposition Patient Disposition: HOME Condition: Stable Discharge Details Clinical Impression: Colitis Primary Care Provider: Amira Kim ED Provider: Waleska Becker Home Meds and New Rx's Prescriptions: New cephalexin 500 mg capsule 500 mg PO DAILY Qty: 1 RF: 0 Continued sertraline 100 mg tablet 150 mg PO DAILY RF: 0 cetirizine 10 mg tablet 10 mg PO DAILY RF: 0 tretinoin [Retin-A] 0.025 % cream 1 applic TOPICAL DIRECTED RF: 0 lorazepam 0.5 mg tablet 0.5 mg PO BID RF: 0 mirtazapine 15 mg tablet 15 mg PO DAILY RF: 0 cholecalciferol (vitamin D3) 50 mcg (2,000 unit) capsule 2,000 unit PO DAILY RF: 0 Discontinued cephalexin 500 mg capsule 500 mg PO DAILY RF: 0 Discharge Instructions Instructions: Colitis (ED) Additional Instructions: clear liquids for the next 24 hours, then slowly advance to a low fiber diet. your cephalexin should be continued as directed, removed in error Referrals: Amira Kim [Primary Care Provider] - (see pcp for referral for colonoscopy and further evaluation) Discharge Data Discharge Date/Time-TO BE ENTERED AT DEPARTURE: 09/24/21 18:06 Medical Decision Making patient presents with c/o abdominal pain and jeffy blood in stool. no diarrhea. no fevers no similar symptoms labs obtained and are unremarkable rectal exam shows no obvious hemorrhoids, no stool or jeffy blood in vault. negative for OB. CT abd/pelvis shows possible early signs of ulcerative colitis. findings discussed with Dr Alcantara who recommends clears with advance to low fiber, pcp f/u and outpatient colonoscopy. safe for discharge to home Medical Records Medical records reviewed: Yes I reviewed the patient's medical records. Imaging Data Radiologic Study: Imaging: CT Scan (abd pelvis with) Radiologist's impression: Exam(s) PROCEDURE INFORMATION: Exam: CT Abdomen And Pelvis With Contrast Exam date and time: 09/24/2021 4:37 PM Age: 21 years old Clinical indication: Other: Abd pain, rectal bleeding TECHNIQUE: Imaging protocol: Computed tomography of the abdomen and pelvis with contrast. Contrast material: OMNIPAQUE 350; Contrast volume: 100 ml; Contrast route: INTRAVENOUS (IV); COMPARISON: No relevant prior studies available. FINDINGS: Lungs: The visualized lung bases are clear. Liver: Normal. No mass. Gallbladder and bile ducts: Normal. No calcified stones. No ductal dilation. Pancreas: Normal. No ductal dilation. Spleen: Normal. No splenomegaly. Adrenal glands: Normal. No mass. Kidneys and ureters: Normal. No hydronephrosis. Stomach and bowel: Subtle focal mucosal enhancement in the mid transverse colon best seen on series 5, image 17 and series 4, image 39. Relatively decompressed mid transverse to left hemicolon without significant wall thickening or mucosal enhancement. Appendix: Appendix is normal in caliber. No periappendiceal edema. No findings to suggest acute appendicitis. Intraperitoneal space: Physiologic pelvic free fluid. Vasculature: Unremarkable. No abdominal aortic aneurysm. Lymph nodes: Unremarkable. No enlarged lymph nodes. Urinary bladder: Unremarkable as visualized. Reproductive: Unremarkable as visualized. Bones/joints: Unremarkable. No acute fracture. Soft tissues: Mild rectus diastasis and a fat containing umbilical hernia. The adjacent bowel loops are noninflamed. No bowel wall thickening or bowel distress. IMPRESSION: Subtle mucosal enhancement of the mid transverse colon proximal to the remainder of the decompressed left hemicolon. No colonic distension or evidence for obstruction. Findings may represent physiologic decompression or subtle early signs ulcerative colitis. Correlate with any history of inflammatory bowel disease. Dictated and Authenticated by: Ever Kwok MD. Ordering:ALDO Galeano MD Lab Data Lab results reviewed: Yes I reviewed the patient's lab results. Lab results narrative: Laboratory Results - last 24 hr 09/24/21 09/24/21 09/24/21 16:00 16:10 16:10 WBC 7.00 RBC 5.02 Hgb 14.5 Hct 43.8 MCV 87.3 MCH 28.9 MCHC 33.1 RDW 13.1 Plt Count 264 MPV 11.3 H Immature Gran % 0.4 Neutrophils % 58.5 Lymphocytes % 30.9 Monocytes % 6.7 Eosinophils % 3.1 Basophils % 0.4 Nucleated RBC % 0 Absolute Neutrophils 4.09 Absolute Lymphocytes 2.16 Absolute Monocytes 0.47 Absolute Eosinophils 0.22 Absolute Basophils 0.03 Sodium 139 Potassium 3.9 Chloride 103 Carbon Dioxide 25.3 Anion Gap 10.7 BUN 17 Creatinine 0.7 Estimated GFR/1.73 m2 >= 60.00 Glucose 95 Calcium 9.2 Magnesium 2.0 Total Bilirubin 0.2 AST 11 L ALT 20 Alkaline Phosphatase 89 Total Protein 8.1 Albumin 4.5 Urine Color Yellow Urine Clarity Clear Urine pH 6.0 Ur Specific [place] 1.020 Urine Protein Negative Urine Ketones Negative Urine Blood Trace-lysed H Urine Nitrite Negative Urine Bilirubin Negative Urine Urobilinogen 0.2 Ur Leukocyte Esterase Negative Urine RBC 0-2 Urine WBC 0-2 Ur Epithelial Cells Moderate Urine Crystals Negative Urine Bacteria Rare Urine Casts Negative Urine Mucus Negative Ur Culture Indicated? No Urine Glucose Negative HPI General Mode of arrival: ambulatory . Date/Time Provider Initiated Documentation: 09/24/21 16:10 . Limitations to Documentation: no limitations . Information obtained by: patient . HPI Narrative: patient presents to the ED with 2 episodes of bright red blood with stooling. denies similar history, states her stool was formed but not constipated no diarrhea. has generalized abdominal pain. mild nausea but taking po. no fever or chills. Related Data Home Medications Medication Instructions Recorded Confirmed sertraline 150 mg PO DAILY 09/28/20 09/24/21 cephalexin 500 mg PO DAILY #1 cap 09/24/21 cetirizine 10 mg PO DAILY 09/24/21 09/24/21 cholecalciferol (vitamin D3) 2,000 unit PO DAILY 09/24/21 09/24/21 lorazepam 0.5 mg PO BID 09/24/21 09/24/21 mirtazapine 15 mg PO DAILY 09/24/21 09/24/21 tretinoin [Retin-A] 1 applic TOPICAL DIRECTED 09/24/21 09/24/21 Previous Rx's Medication Instructions Recorded cephalexin 500 mg PO DAILY #1 cap 09/24/21 Allergies Allergy/AdvReac Type Severity Reaction Status Date / Time ibuprofen Allergy Unverified 09/24/21 15:44 rabbits Allergy Uncoded 09/24/21 15:44 General Stated Complaint: GI Bleed ASIA: 3 Review of Systems Constitutional Constitutional: Denies fever(s) and Denies weakness ENT Ears, Nose, Mouth, and Throat: Denies vertigo and Denies dizziness Cardiovascular Cardiovascular: Denies chest pain, Denies syncope and Denies dyspnea Respiratory Respiratory: Denies cough and Denies dyspnea Gastrointestinal Gastrointestinal: Reports abdominal pain, Reports hematochezia, Denies constipation, Denies diarrhea, Reports nausea and Denies vomiting Genitourinary Genitourinary: Denies urinary incontinence, Denies urinary hesitancy, Denies urinary urgency and Denies vaginal discharge Musculoskeletal Musculoskeletal: Denies back pain and Denies myalgias Neurologic Neurologic: Denies vertigo, Denies dizziness, Denies syncope and Denies weakness Hematologic/Lymphatic Hematologic/Lymphatic: Denies easy bleeding and Denies easy bruising PFSH All Active Problems (Updated 09/24/21 @ 17:57 by Waleska Becker NP) Cellulitis (Acute) Colitis (Acute) Social History Smoking/Tobacco Use Status: Current every day Tobacco Type: cigarettes Smoking risk assessment performed?: Yes Alcohol Intake: never Drug use: Occasionally Substance use type: marijuana Do you feel safe at home: Yes Do you feel safe in your relationship?: Yes Exam Const General: cooperative, healthy appearing, comfortable and no acute distress Nutritional Appearance: overweight Orientation: alert, awake and oriented x3 HENMT Head: normal to inspection, normocephalic and atraumatic Mouth: oral mucosae normal Chest Chest: normal inspection of the chest Resp Effort & Inspection: normal respiratory effort Auscultation: clear to auscultation bilaterally Cardio Rate: regular rate Rhythm: regular rhythm GI Inspection: normal to inspection Palpation: soft and tender in the LLQ and in the RLQ Auscultation: normal bowel sounds Skin General skin exam: no rashes or lesions noted Neuro General: patient alert, patient awake and patient oriented x3 Course Vital Signs Vital signs: Vital Signs Temperature 36.7 C 09/24/21 15:39 Pulse 97 H 09/24/21 15:39 Respiratory Rate 12 09/24/21 15:39 Blood Pressure 130/85 09/24/21 15:39 Pulse Oximetry 99 09/24/21 15:39 Temperature 36.7 C 09/24/21 15:39 Temperature Source Temporal Artery Scan 09/24/21 15:39 Pulse 97 H 09/24/21 15:39 Respiratory Rate 12 09/24/21 15:39 Respiratory Effort Non-Labored 09/24/21 15:56 Blood Pressure 130/85 09/24/21 15:39 Blood Pressure Position Sitting 09/24/21 15:39 Pulse Oximetry 99 09/24/21 15:39 Oxygen Delivery Method Room Air 09/24/21 15:39 Oxygen Flow Rate 0 09/24/21 15:39 Pain Level 6 09/24/21 15:39 Lab/Test Results Lab/Test Results: Laboratory Tests Range/Units 09/24/21 09/24/21 09/24/21 16:00 16:10 16:10 WBC (4.4-10.8) 10^3/uL 7.00 RBC (3.93-5.22) 10^6/uL 5.02 Hgb (11.2-15.7) g/dL 14.5 Hct (36.0-46.0) % 43.8 MCV (80-95) fL 87.3 MCH (27.0-33.0) pg 28.9 MCHC (32.0-36.0) % 33.1 RDW (11.7-14.6) % 13.1 Plt Count (130-400) 10^3/uL 264 MPV (8.0-11.0) fL 11.3 H Immature Gran % 0.4 Neutrophils % 58.5 Lymphocytes % 30.9 Monocytes % 6.7 Eosinophils % 3.1 Basophils % 0.4 Nucleated RBC % % 0 Absolute Neutrophils (1.2-6.7) 10^3/uL 4.09 Absolute Lymphocytes (1.2-3.4) 10^3/uL 2.16 Absolute Monocytes (0.1-0.8) 10^3/uL 0.47 Absolute Eosinophils (0.0-0.7) 10^3/uL 0.22 Absolute Basophils (0.0-0.2) 10^3/uL 0.03 Sodium (136-145) mmol/L 139 Potassium (3.5-5.1) mmol/L 3.9 Chloride (98-107) mmol/L 103 Carbon Dioxide (21.0-32.0) mmol/L 25.3 Anion Gap (3-11) mmol/L 10.7 BUN (7-18) mg/dL 17 Creatinine (0.55-1.02) mg/dL 0.7 Estimated GFR/1.73 m2 (mL/min/1.73m2) >= 60.00 Glucose (74-106) mg/dL 95 Calcium (8.5-10.1) mg/dL 9.2 Magnesium (1.8-2.4) mg/dL 2.0 Total Bilirubin (0.2-1.0) mg/dL 0.2 AST (15-37) U/L 11 L ALT (14-59) U/L 20 Alkaline Phosphatase (46-116) U/L 89 Total Protein (6.4-8.2) g/dL 8.1 Albumin (3.4-5.0) g/dL 4.5 Urine Color (Yellow) Yellow Urine Clarity (Clear) Clear Urine pH (5-8) 6.0 Ur Specific [place] (1.005-1.025) 1.020 Urine Protein (Negative) mg/dL Negative Urine Ketones (Negative) mg/dL Negative Urine Blood (Negative) Trace-lysed H Urine Nitrite (Negative) Negative Urine Bilirubin (Negative) Negative Urine Urobilinogen (Up TO 0.2) EU/dL 0.2 Ur Leukocyte Esterase (Negative) Negative Urine RBC (0-2) HPF 0-2 Urine WBC (0-5) HPF 0-2 Ur Epithelial Cells (Negative) HPF Moderate Urine Crystals (Negative) HPF Negative Urine Bacteria (Negative) HPF Rare Urine Casts (Negative) LPF Negative Urine Mucus (Negative) Negative Ur Culture Indicated? No Urine Glucose (Negative) mg/dL Negative POC- Test(urine) Negative
[2021-09-24 18:07] VITALS: BP 112/76; PULSE 60; TEMP 36.6; O2SAT 98
== END 2021-09-24 18:06 | disposition home or self-care (01) ==
PROVIDERS: Emergency Provider Nurse Practitioner Acute Care; PCP Family Medicine
DX: K52.9 Noninfective gastroenteritis and colitis, unspecified (principal); K92.1 Melena
CPT/HCPCS: 36415; 80053; 81025; 96361; 96374; 99285; 74177; 81003; 81015; 83735; 85025; 99284; J2405; J3490

== ENCOUNTER 2021-10-13 11:39 | Emergency (ER) | payer MEDICAID, SELFPAY ==
[2021-10-13 11:50] VITALS: BP 136/76; PULSE 73; RESP 12; TEMP 36.4
--- NOTE | 2021-10-13 12:00 | DI.CT_ITS ---
Exam(s) CT NECK W EXAM: CT NECK W CLINICAL HISTORY: headache, globus sensation in mid throat. TECHNIQUE: Imaging Protocol: Axial computed tomography images with coronal and sagittal reformatted images were created and reviewed CONTRAST MATERIAL: Intravenous: Omnipaque 350 Contrast volume:100 ml Contrast route:IV - COMPARISON: No exams were available for comparison FINDINGS: Parotids/submandibular/thyroid gland: Normal. Lymphadenopathy: There is scattered lymph nodes seen along the level one to level three all measurin g less than 8 mm in short axis diameter which are physiologic in nature. Carotids/Jugular: Within normal limits. Soft tissues: The floor the mouth is unremarkable. The epiglottis and vocal cords are within normal limits. Images through both lung apices are unremarkable. Tonsils and adenoids unremarkable. No absce ss. Mild mucosal thickening floor right maxillary sinus. Bones: Unremarkable. IMPRESSION: Normal CT scan of the neck. RADIATION DOSE DELIVERED: 559.13mGy.cm Total DLP DATA REPOSITORY: All CT scans at this facility are submitted to the National Radiology Data Registry (NRDR) Dose Index Registry (DIR) with the [employer] ([employer]). RADIATION OPTIMIZATION: All CT scans at this facility use at least one of these dose optimization te chniques: automated exposure control; mA and/or kV adjustment per patient size (includes targeted exa ms where dose is matched to clinical indication); or iterative reconstruction.
--- NOTE | 2021-10-13 12:08 | DI.CT_ITS ---
Exam(s) CT HEAD WO EXAM: CT HEAD WO CLINICAL HISTORY: headache, recurrent, global. TECHNIQUE: Imaging Protocol: Axial computed tomography images with coronal and sagittal reformatted images were created and reviewed COMPARISON: No exams were available for comparison FINDINGS: Ventricles and Extra axial spaces: Normal in size and morphology for the patient's age. Hemorrhage: None. Cerebral parenchyma: Normal. Midline shift: None. Brainstem/Cerebellum: Normal. Calvarium: Normal. Visualized Paranasal sinuses/Mastoids: Clear. Soft Tissues: Unremarkable. IMPRESSION: No acute intracranial process. RADIATION DOSE DELIVERED: 695.92mGy.cm Total DLP DATA REPOSITORY: All CT scans at this facility are submitted to the National Radiology Data Registry (NRDR) Dose Index Registry (DIR) with the [employer] ([employer]). RADIATION OPTIMIZATION: All CT scans at this facility use at least one of these dose optimization te chniques: automated exposure control; mA and/or kV adjustment per patient size (includes targeted exa ms where dose is matched to clinical indication); or iterative reconstruction.
--- NOTE | 2021-10-13 12:19 | W.ED.GENAD ---
Discharge Plan Disposition Patient Disposition: HOME Condition: Good Discharge Details Clinical Impression: Headache Primary Care Provider: Omar Franks ED Provider: Lei Hamlin Home Meds and New Rx's Prescriptions: Continued albuterol sulfate [ProAir HFA] 90 mcg/actuation HFA aerosol inhaler 2 puff inhalation Q4H PRNRF: 0 famotidine 20 mg tablet 20 mg PO BID RF: 0 [id number]-kwffumbctmnrc-zbak [Fioricet] 50-300-40 mg capsule 1 cap PO .Q4-6H PRNRF: 0 Flovent HFA 110 mcg/actuation HFA aerosol inhaler 1 puff inhalation BID RF: 0 sertraline 100 mg tablet 150 mg PO DAILY RF: 0 cetirizine 10 mg tablet 10 mg PO DAILY RF: 0 tretinoin [Retin-A] 0.025 % cream 1 applic TOPICAL DIRECTED RF: 0 lorazepam 0.5 mg tablet 0.5 mg PO BID RF: 0 mirtazapine 15 mg tablet 15 mg PO DAILY RF: 0 cholecalciferol (vitamin D3) 50 mcg (2,000 unit) capsule 2,000 unit PO DAILY RF: 0 cephalexin 500 mg capsule 500 mg PO DAILY Qty: 1 RF: 0 Discharge Instructions Instructions: General Headache (ED) Additional Instructions: At this time I suspect that your symptoms are from a tension headache. Please continue to massage the back of your neck, follow-up closely with your primary care provider. You can have further discussion with them about potential future injections by neurology or other medications to help with the headache. If you notice any worsening of your symptoms, or any new symptoms such as vomiting, diarrhea, fever, chills, shortness of breath, chest pain, numbness, weakness, or fainting , please return immediately to the emergency department for reevaluation. Please follow up with your primary care provider as soon as possible for reassessment and reevaluation. As always, it was a pleasure participating in your medical care today. Referrals: Omar Franks [Primary Care Provider] - Medical Decision Making 21-year-old female with a past medical history of colitis, depression, generalized anxiety disorder, who presents today for evaluation of headache and sore throat. Patient states that for the last 2 years she has had on and off headaches, which seem to come and go every few days. She describes them as achy-like sensation from the back of the head all the way to the front. She states that they feels tight. Pain is also behind the eyes, and achy. She denies any difficulty swallowing or drinking. The throat sensation has been present for the last few days in conjunction with a mild sore throat. She denies any vision changes. The patient denies any headache red flags of worst headache of life, thunderclap headache, neck pain, fever, chills, concerning family history of polycystic kidney disease, Marfan syndrome, Michael-Danlos syndrome, abdominal aortic aneurysm, aortic dissection, or intracranial aneurysm. Patient states that she has not been able to follow-up with her primary care provider in regards to the symptoms. She has done multiple changes for her food but notes no change in the headaches. She denies any focal aggravating or relieving factors. No other complaints at this time Physical exam demonstrates no meningeal signs. Minimal erythema in the posterior oropharynx but no other abnormalities. Patient has had a tonsillectomy. Patient's headache notably improved with pressure to the suboccipital region which likely suggests a tension headache component. There may be a component of migraine as well. No other significant concerning abnormalities on exam otherwise. In discussion with the patient the patient states significant concern with her headache as well as the longevity for the last few years, she would like further imaging and evaluation. We did discuss risks and benefits of radiographic imaging patient understands and accepts this and would still like to proceed with further imaging. We will get a CT scan for further assessment. Will give migraine cocktail, monitor closely and reassess. Symptoms at this time are clinically inconsistent with a dural venous sinus thrombosis, meningitis. 4:23 PM On reassessment patient remained stable, no clinical evidence of neurologic deficit or other abnormality. CT scan of the head and neck are negative for acute process. Suspect tension headache. Patient feels stable to go home. Recommend outpatient follow-up with new PCP which is the patient's request. Discussed red flags for which to return. I have extensively reviewed the treatment plan and discharge instructions with the patient. I have addressed all patient concerns at this time. The patient was made aware of what symptoms to monitor for that would warrant a return to the emergency department. Discussed the plan with the patient, they demonstrate verbal understanding and agreement with our assessment and plan at this time. The documentation in this chart was dictated using Dragon dictation software. Please excuse any dictation errors. FINDINGS: Ventricles and Extra axial spaces: Normal in size and morphology for the patient's age. Hemorrhage: None. Cerebral parenchyma: Normal. Midline shift: None. Brainstem/Cerebellum: Normal. Calvarium: Normal. Visualized Paranasal sinuses/Mastoids: Clear. Soft Tissues: Unremarkable. IMPRESSION: No acute intracranial process. FINDINGS: Parotids/submandibular/thyroid gland: Normal. Lymphadenopathy: There is scattered lymph nodes seen along the level one to level three all measuring less than 8 mm in short axis diameter which are physiologic in nature. Carotids/Jugular: Within normal limits. Soft tissues: The floor the mouth is unremarkable. The epiglottis and vocal cords are within normal limits. Images through both lung apices are unremarkable. Tonsils and adenoids unremarkable. No abscess. Mild mucosal thickening floor right maxillary sinus. Bones: Unremarkable. IMPRESSION: Normal CT scan of the neck. HPI General Date/Time Provider Initiated Documentation: 10/13/21 11:49. HPI Narrative: 21-year-old female with a past medical history of colitis, depression, generalized anxiety disorder, who presents today for evaluation of headache and sore throat. Patient states that for the last 2 years she has had on and off headaches, which seem to come and go every few days. She describes them as achy-like sensation from the back of the head all the way to the front. She states that they feels tight. Pain is also behind the eyes, and achy. She denies any difficulty swallowing or drinking. The throat sensation has been present for the last few days in conjunction with a mild sore throat. She denies any vision changes. The patient denies any headache red flags of worst headache of life, thunderclap headache, neck pain, fever, chills, concerning family history of polycystic kidney disease, Marfan syndrome, Michael-Danlos syndrome, abdominal aortic aneurysm, aortic dissection, or intracranial aneurysm. Patient states that she has not been able to follow-up with her primary care provider in regards to the symptoms. She has done multiple changes for her food but notes no change in the headaches. She denies any focal aggravating or relieving factors. No other complaints at this time Related Data Home Medications Medication Instructions Recorded Confirmed sertraline 150 mg PO DAILY 09/28/20 09/24/21 cephalexin 500 mg PO DAILY #1 cap 09/24/21 cetirizine 10 mg PO DAILY 09/24/21 09/24/21 cholecalciferol (vitamin D3) 2,000 unit PO DAILY 09/24/21 09/24/21 lorazepam 0.5 mg PO BID 09/24/21 09/24/21 mirtazapine 15 mg PO DAILY 09/24/21 09/24/21 tretinoin [Retin-A] 1 applic TOPICAL DIRECTED 09/24/21 09/24/21 albuterol sulfate 90 mcg/actuation 2 puff INHALATION Q4H PRN g 09/26/21 aerosol inhaler [id number]-ecdfdweidndzc-qwcpuajq 1 cap PO .Q4-6H PRN cap 09/26/21 50 mg-300 mg-40 mg capsule famotidine 20 mg tablet 20 mg PO BID 09/26/21 fluticasone propionate 110 1 puff INHALATION BID 09/26/21 mcg/actuation HFA aerosol inhaler Previous Rx's Medication Instructions Recorded cephalexin 500 mg PO DAILY #1 cap 09/24/21 Allergies Allergy/AdvReac Type Severity Reaction Status Date / Time ibuprofen Allergy Unverified 09/24/21 15:44 rabbits Allergy Uncoded 09/24/21 15:44 General Stated Complaint: GenMedical ASIA: 3 Review of Systems All systems reviewed & are unremarkable except as noted in HPI and below PFSH All Active Problems (Updated 10/13/21 @ 13:58 by Lei Hamlin DO) Headache (Acute) Cellulitis (Acute) Colitis (Acute) Medical History Generalized anxiety disorder Migraine Mild intermittent asthma Moderate recurrent major depression Family History Mother Depression Maternal Grandmother Leukemia Social History Smoking/Tobacco Use Status: Current every day Tobacco Type: cigarettes Smoking risk assessment performed?: Yes Alcohol Intake: never Drug use: Occasionally Substance use type: marijuana Do you feel safe at home: Yes Do you feel safe in your relationship?: Yes Exam Narrative Exam Narrative: 1.Const: Well-nourished, Well-developed, appearing stated age 2.Eyes: PERRL, no conjunctival injection, and symmetrical lids. 3.ENT: Atraumatic external nose and ears. Moist MM. Neck: Symmetric, trachea midline, No thyromegaly. Patient demonstrates good movement of cervical neck. There is no nuchal rigidity, no nuchal tenderness. Patient is able to flex the neck without any difficulty or significant pain. Negative Kernig's and Brudzinski sign. Minimal erythema in the posterior oropharynx. Tonsils are gone. No visual abnormalities otherwise. No palpable abnormality or asymmetry in the neck or throat 4.CVS: +S1/S2, No murmurs or gallops. Peripheral pulses 2+ and equal in all extremities. Brisk capillary refill in all extremities. 5.RESP: Unlabored respiratory effort. Clear to auscultation bilaterally. No wheezes rales or rhonchi 6.GI: Soft, Nontender/Nondistended, No hepatosplenomegaly. No guarding or rebound. 7.MSK: Normocephalic/Atraumatic, Extremities w/o deformity or ttp No cyanosis or clubbing, Normal movement of all extremities 8.Skin: Warm, Dry. No rashes or lesions. 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 Sensation grossly intact, no focal neurologic deficits. All 6 cardinal planes of vision are fully intact. No evidence of rotatory or vertical nystagmus. The patient demonstrated a normal mdgarl-jugv-viniuy, good dexterity. There was no evidence of dysdiadochokinesia. Patient was able to ambulate without difficulty. There was no wide-based gait. Romberg testing was normal. Dxlq-vp-omnv testing was normal. Sensation was intact bilaterally as well as muscle strength bilaterally for all extremities. Patient was able to verbalize butter cup with no slurring, or miss pronunciation. 10.Psych: (AAO) x3. Appropriate mood and affect Course Vital Signs Vital signs: Vital Signs Temperature 36.4 C L 10/13/21 11:50 Pulse 73 10/13/21 11:50 Respiratory Rate 12 10/13/21 11:50 Blood Pressure 136/76 10/13/21 11:50 Temperature 36.4 C L 10/13/21 11:50 Temperature Source Temporal Artery Scan 10/13/21 11:50 Pulse 73 10/13/21 11:50 Respiratory Rate 12 10/13/21 11:50 Respiratory Effort Non-Labored 10/13/21 11:54 Blood Pressure 136/76 10/13/21 11:50 Blood Pressure Position Sitting 10/13/21 11:50 Oxygen Delivery Method Room Air 10/13/21 11:50 Oxygen Flow Rate 0 10/13/21 11:50 Pain Level 8 10/13/21 11:50 Lab/Test Results Lab/Test Results: 10/13/21 11:55 Pharynx Group A Streptococcus Culture - Pending POC Strep Test-JOSE LUIS(Rapid) Start: 10/13/21 11:51 Freq: .Rapid Strep Test Status: Active Protocol: Document 10/13/21 11:52 EC (Rec: 10/13/21 11:56 EC [id number]) Strep test-JOSE LUIS(Rapid)-POC POC-Strep test-JOSE LUIS (Rapid) Negative POC-Strep test-JOSE LUIS (Rapid) Negative
[2021-10-13] MEDS: Acetaminophen 500 MG TAB 1000 MG PO (12:26)
[2021-10-13] MEDS: Ketorolac 15 MG/ML VIAL IVP (12:40)
[2021-10-13] MEDS: diphenhydrAMINE 50 MG/ML VIAL 25 MG IVP (12:40)
[2021-10-13] MEDS: Prochlorperazine 10 MG/2 ML VIAL IVP (12:41)
[2021-10-13 12:47] LABS: Abs Immature Grans 0.01 10^3/uL (0.0-0.06); Absolute Basophil Count 0.03 10^3/uL (0.0-0.2); Absolute Eosinophil Count 0.25 10^3/uL (0.0-0.7); Absolute Lymphocyte Count 1.99 10^3/uL (1.2-3.4); Absolute Monocyte Count 0.48 10^3/uL (0.1-0.8); Absolute Neutrophil Count 4.11 10^3/uL (1.2-6.7); Basophils % 0.4; Eosinophils % 3.6; HGB 13.8 g/dL (11.2-15.7); Immature Grans % 0.1; MCH 28.8 pg (27.0-33.0); MCHC 32.9 % (32.0-36.0); MCV 87.5 fL (80-95); MPV 10.7 fL (8.0-11.0); Neutrophils % 59.9; Nucleated RBC 0 %; Platelet Count 229 10^3/uL (130-400); RDW 12.9 % (11.7-14.6); RDW-SD 41.5 fL; WBC 6.87 10^3/uL (4.4-10.8)
[2021-10-13 13:00] LABS: ALT 23 U/L (14-59); AST 18 U/L (15-37); Alkaline Phosphatase 84 U/L (46-116); Anion Gap 6.5 mmol/L (3-11); BUN 18 mg/dL (7-18); Bilirubin, Total 0.2 mg/dL (0.2-1.0); CO2 29.5 mmol/L (21.0-32.0); CREATININE 0.7 mg/dL (0.55-1.02); Calcium 9.4 mg/dL (8.5-10.1); Chloride 103 mmol/L (98-107); Glucose 101 mg/dL (74-106); Potassium 4.3 mmol/L (3.5-5.1); Sodium 139 mmol/L (136-145); Total Protein 7.5 g/dL (6.4-8.2)
[2021-10-13 13:03] VITALS: RESP 17
[2021-10-13] MEDS: Normal Saline 1,000 ML 1000 ML IV (13:03)
[2021-10-13] MEDS: Omnipaque 350 MG/ML 100 ML BTL IV (13:07)
[2021-10-13 14:19] VITALS: BP 116/66; PULSE 72; RESP 17; TEMP 36.5; O2SAT 96
== END 2021-10-13 14:16 | disposition home or self-care (01) ==
PROVIDERS: Emergency Provider Student in an Organized Health Care Education/Training Program; PCP Nurse Practitioner Family
DX: R51.9 Headache, unspecified (principal); J02.9 Acute pharyngitis, unspecified; Z90.89 Acquired absence of other organs; F17.210 Nicotine dependence, cigarettes, uncomplicated
CPT/HCPCS: 36415; 70491; 80053; 81025; 87880; 96361; 96374; 96375; 99284; 70450; 85025; 87081; J0780; J1200; J1885; J3490

== ENCOUNTER 2022-08-20 11:42 | Outpatient (REF) | payer MEDICAID, SELFPAY | END 2022-08-20 11:43 | disposition home or self-care (01) | LOC: NCHCN 11:42 | PROVIDERS: PCP Nurse Practitioner Family; Visit Provider Nurse Practitioner Family | DX: J02.9 Acute pharyngitis, unspecified (principal) | CPT/HCPCS: 87070 ==

== ENCOUNTER 2022-09-15 12:53 | Emergency (ER) | payer MEDICAID, SELFPAY ==
[2022-09-15 13:08] VITALS: BP 116/88; PULSE 82; RESP 18; TEMP 37.4; O2SAT 96
--- NOTE | 2022-09-15 13:15 | DI.RAD_ITS ---
Exam(s) XR CHEST 2V PA LATERAL EXAM: XR CHEST 2V PA LATERAL CLINICAL HISTORY: persistent cough TECHNIQUE: 2D digital imaging was performed of the chest. Two images were obtained. PA and lateral views were obtained. COMPARISON: No exams were available for comparison FINDINGS: MEDIASTINUM: Normal. HEART: Normal. PULMONARY VASCULATURE: Normal. LUNGS: There are increased lung markings in the right middle lobe suspicious for pneumonia. The lung s are otherwise clear. PLEURAL SPACE: No pleural effusion or pneumothorax. BONE:Within normal limits for the patient's age. OTHER FINDINGS:Normal. IMPRESSION: Findings suspicious for right middle lobe infiltrate and pneumonia. DATA REPOSITORY: RADIATION DOSE DELIVERED:
--- NOTE | 2022-09-15 13:15 | DI.US_ITS ---
Exam(s) US PELVIS EXAM: US PELVIS CLINICAL HISTORY: RLQ pain, eval appendix, ovary, and for hernia. TECHNIQUE: Transabdominal and transvaginal pelvic ultrasound was performed using standard protocol. COMPARISON: CT CT ABDOMEN PELVIS W from 09/24/2021 FINDINGS: UTERUS: Position: Anteverted. Size: 8.3 long by 3.9 AP by 5.0 transverse cm Endometrium: 0.8 cm. Normal for patient's menstrual status. Myometrium: Unremarkable. Cervix: Unremarkable. OVARIES: Right: 2.6 x 2.3 x 2.7 cm Cyst or mass: No suspicious cystic or solid masses. Left: 3 x 2.3 x 2.3 cm Cyst or mass: No suspicious cystic or solid masses. DOPPLER: Color: Symmetric and uniform flow to both ovaries. CUL-DE-SAC: Free fluid: None. Other: The right lower quadrant was evaluated. No definite evidence to suggest an acute appendicitis is seen sonographically. IMPRESSION: 1. No sonographic evidence of acute appendicitis. If there is continued clinical concern however, a CT scan of the abdomen and pelvis should be obtained. 2. Normal-appearing uterus with endometrial stripe within normal limits. 3. Unremarkable bilateral ovaries. 4. Findings were discussed with Jacklyn Peters at 3:15 p.m. on 09/15/2022. DATA REPOSITORY:
--- NOTE | 2022-09-15 14:01 | W.ED.GENAD ---
Discharge Plan Disposition Patient Disposition: Home Condition: Stable Discharge Details Clinical Impression: Abdominal pain, Pneumonia Primary Care Provider: Omar Franks ED Provider: Jacklyn Peters Home Meds and New Rx's Prescriptions: New prednisone 20 mg tablet 40 mg PO ONCE Qty: 10 0RF albuterol sulfate 90 mcg/actuation aero powdr breath act w/sensor 2 inh inhalation QID Qty: 1 0RF doxycycline hyclate 100 mg tablet 100 mg PO BID 10 Days Qty: 20 0RF Continued omeprazole 20 mg capsule,delayed release(DR/EC) 20 mg PO DAILY 30 Days Qty: 30 2RF Rx Instructions: 1/2 to 1 hr prior to a meal albuterol sulfate [ProAir HFA] 90 mcg/actuation HFA aerosol inhaler 2 puff inhalation Q4H PRN famotidine 20 mg tablet 20 mg PO BID jcwmlcuyjj-eqxlfzhpvgyye-pzmn [Fioricet] 50-300-40 mg capsule 1 cap PO .Q4-6H PRN Flovent HFA 110 mcg/actuation HFA aerosol inhaler 1 puff inhalation BID sertraline 100 mg tablet 150 mg PO DAILY Label Comments: TK 1 T PO QD tretinoin [Retin-A] 0.025 % cream 1 applic TOPICAL DIRECTED Label Comments: APPLY PEA SIZED AMOUNT TOPICALLY TO FACE EVERY OTHER NIGHT. INCREASE TO EVERY NIGHT TOLERATED lorazepam 0.5 mg tablet 0.5 mg PO BID Label Comments: TAKE 1 TABLET BY MOUTH TWICE DAILY FOR SEVERE ANXIETY AND PANIC. AFTER ALLOW 10 HOURS BEFORE NEXT FEED mirtazapine 15 mg tablet 15 mg PO DAILY cholecalciferol (vitamin D3) 50 mcg (2,000 unit) capsule 2,000 unit PO DAILY Label Comments: TAKE 1 CAPSULE BY MOUTH EVERY DAY Discharge Instructions Instructions: Acute Bronchitis (ED), Abdominal Pain (ED) Additional Instructions: Please follow-up with your primary care physician The results of your other tests have not resulted, please call you within the next 45 minutes for results if you are interested Please return earlier should he have new or worsening complaints and I recommend close outpatient reassessment with your primary care physician 2 puffs every 4-6 hours as needed for cough, wheeze, shortness of breath Prednisone for the next 5 days take antibiotic as prescribed for pneumonia Medical Decision Making This 22-year-old female with history of asthma presents with persistent cough for the past month now with right lower quadrant abdominal pain. She states she had pain in this area before. She denies any fever or chills. 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 HPI Narrative: This 22-year-old female presents with cough and mucus production. She states that with cough that is causing some abdominal pain. She denies any chest pain or shortness of breath. Sexually active and monogamous with her partner. Denies any vaginal discharge. Denies any urinary symptoms. Related Data Home Medications Medication Instructions Recorded Confirmed sertraline 100 mg tablet 150 mg PO DAILY 09/28/20 10/29/21 cholecalciferol (vitamin D3) 50 2,000 unit PO DAILY 09/24/21 10/29/21 mcg (2,000 unit) capsule lorazepam 0.5 mg tablet 0.5 mg PO BID 09/24/21 10/29/21 mirtazapine 15 mg tablet 15 mg PO DAILY 09/24/21 10/29/21 tretinoin 0.025 % topical cream 1 applic topical DIRECTED 09/24/21 09/24/21 (Retin-A) albuterol sulfate 90 mcg/actuation 2 puff inhalation Q4H PRN 09/26/21 10/29/21 aerosol inhaler (ProAir HFA) zgwrhwlfun-zfoxoggscadln-nuaghyjn 1 cap PO .Q4-6H PRN 09/26/21 50 mg-300 mg-40 mg capsule (Fioricet) famotidine 20 mg tablet 20 mg PO BID 09/26/21 10/29/21 fluticasone propionate 110 1 puff inhalation BID 09/26/21 10/29/21 mcg/actuation HFA aerosol inhaler (Flovent HFA) omeprazole 20 mg capsule,delayed 20 mg PO DAILY 30 days #30 caps 10/29/21 10/29/21 release albuterol sulfate 90 mcg/actuation 2 inh inhalation QID #1 ea 09/15/22 breath activated powder inhaler,sensor doxycycline hyclate 100 mg tablet 100 mg PO BID 10 days #20 tabs 09/15/22 prednisone 20 mg tablet 40 mg PO ONCE #10 tabs 09/15/22 Previous Rx's Medication Instructions Recorded omeprazole 20 mg capsule,delayed 20 mg PO DAILY 30 days #30 caps 10/29/21 release albuterol sulfate 90 mcg/actuation 2 inh inhalation QID #1 ea 09/15/22 breath activated powder inhaler,sensor doxycycline hyclate 100 mg tablet 100 mg PO BID 10 days #20 tabs 09/15/22 prednisone 20 mg tablet 40 mg PO ONCE #10 tabs 09/15/22 Allergies Allergy/AdvReac Type Severity Reaction Status Date / Time ibuprofen Allergy Unverified 09/15/22 13:15 rabbits Allergy Uncoded 09/15/22 13:15 General Stated Complaint: RespSymp ASIA: 3 Review of Systems All systems reviewed & are unremarkable except as noted in HPI and below PFSH All Active Problems (Updated 09/15/22 @ 15:50 by AYDEN Chen) Abdominal pain (Acute) Pneumonia (Acute) Tonsillolith (Acute) Laryngopharyngeal reflux (Acute) Globus sensation (Acute) Colitis (Acute) Cellulitis (Acute) Medical History (Updated 09/15/22 @ 15:50 by AYDEN Chen) Generalized anxiety disorder Migraine Mild intermittent asthma Moderate recurrent major depression Surgical History (Updated 10/29/21 @ 17:12 by aNthaniel Rosales MD) Hx of adenoidectomy S/p bilateral myringotomy with tube placement Family History Mother Depression Maternal Grandmother Leukemia Social History Smoking/Tobacco Use Status: Current every day Tobacco Type: cigarettes Smoking risk assessment performed?: Yes Alcohol Intake: never Drug use: Occasionally Substance use type: marijuana Do you feel safe at home: Yes Do you feel safe in your relationship?: Yes Exam Const General: cooperative Eyes Sclera: sclerae normal Resp Effort & Inspection: normal respiratory effort Auscultation: clear to auscultation bilaterally Cardio Rate: regular rate Rhythm: regular rhythm GI Other: Mild right lower quadrant abdominal tenderness without rebound or guarding Other: No palpable inguinal hernia, tenderness over right adnexal region Skin General skin exam: no rashes or lesions noted Neuro General: patient alert Course Vital Signs Vital signs: Vital Signs Temperature 37.4 C 09/15/22 13:08 Pulse 82 09/15/22 13:08 Respiratory Rate 18 09/15/22 13:08 Blood Pressure 116/88 09/15/22 13:08 Pulse Oximetry 96 09/15/22 13:08 Temperature 37.4 C 09/15/22 13:08 Temperature Source Oral 09/15/22 13:08 Pulse 82 09/15/22 13:08 Respiratory Rate 18 09/15/22 13:08 Respiratory Effort Non-Labored 09/15/22 13:13 Respiratory Depth Normal 09/15/22 13:13 Blood Pressure 116/88 09/15/22 13:08 Blood Pressure Position Sitting 09/15/22 13:08 Pulse Oximetry 96 09/15/22 13:08 Oxygen Delivery Method Room Air 09/15/22 13:08 Oxygen Flow Rate 0 09/15/22 13:08 Pain Level 5 09/15/22 13:20 Comment 09/15/22 13:08
[2022-09-15 14:06] LABS: Bilirubin Negative (Negative); Blood Negative (Negative); Clarity Clear (Clear); Glucose Negative (Negative); Ketones Negative (Negative); Leukocyte Esterase Trace (Negative); Nitrite Negative (Negative); Specific Gravity 1.015 (1.005-1.025); Urobilinogen 0.2 EU/dL (Up TO 0.2); pH 6.5 (5-8)
[2022-09-15 14:14] LABS: Bacteria Many HPF (Negative); C & S Indicated? Yes; Casts Negative LPF (Negative); Crystals Negative HPF (Negative); Epithelial Cells Few HPF (Negative); Mucus Negative (Negative); RBC 0-2 HPF (0-2)
[2022-09-15 14:24] LABS: Abs Immature Grans 0.02 10^3/uL (0.0-0.06); Absolute Basophil Count 0.01 10^3/uL (0.0-0.2); Absolute Eosinophil Count 0.09 10^3/uL (0.0-0.7); Absolute Lymphocyte Count 1.67 10^3/uL (1.2-3.4); Absolute Monocyte Count 0.95 10^3/uL (0.1-0.8); Absolute Neutrophil Count 5.74 10^3/uL (1.2-6.7); Basophils % 0.1; Eosinophils % 1.1; HCT 36.8 % (36.0-46.0); HGB 12.3 g/dL (11.2-15.7); Immature Grans % 0.2; Lymphocytes % 19.7; MCH 28.8 pg (27.0-33.0); MCHC 33.4 % (32.0-36.0); MCV 86 fL (80-95); MPV 11.4 fL (8.0-11.0); Monocytes % 11.2; Neutrophils % 67.7; Platelet Count 278 10^3/uL (130-400); RBC 4.27 10^6/uL (3.93-5.22); RDW 12.6 % (11.7-14.6); RDW-SD 39.5 fL; WBC 8.48 10^3/uL (4.4-10.8)
[2022-09-15 15:11] LABS: ALT 23 U/L (14-59); AST 11 U/L (15-37); Albumin 3.7 g/dL (3.4-5.0); Alkaline Phosphatase 71 U/L (46-116); Anion Gap 8.7 mmol/L (3-11); BUN 8 mg/dL (7-18); Bilirubin, Total 0.4 mg/dL (0.2-1.0); CO2 26.3 mmol/L (21.0-32.0); CREATININE 0.7 mg/dL (0.55-1.02); Chloride 101 mmol/L (98-107); Estimated GFR 123.78 (mL/min/1.73m2); Glucose 92 mg/dL (74-106); Potassium 3.8 mmol/L (3.5-5.1); Sodium 136 mmol/L (136-145); Total Protein 7.9 g/dL (6.4-8.2)
== END 2022-09-15 15:21 | disposition home or self-care (01) ==
PROVIDERS: Emergency Provider Physician Assistant; PCP Nurse Practitioner Family
DX: R10.31 Right lower quadrant pain (principal); J18.9 Pneumonia, unspecified organism; J45.20 Mild intermittent asthma, uncomplicated
CPT/HCPCS: 80053; 87077; 99283; 71046; 76856; 81003; 81015; 85025; 87086; 87186; 99284

== ENCOUNTER 2023-02-03 15:01 | Outpatient (REF) | payer MEDICAID, SELFPAY ==
[2023-02-03 16:09] LABS: Abs Immature Grans 0.02 10^3/uL (0.0-0.06); Absolute Basophil Count 0.02 10^3/uL (0.0-0.2); Absolute Lymphocyte Count 2.68 10^3/uL (1.2-3.4); Absolute Monocyte Count 0.34 10^3/uL (0.1-0.8); Absolute Neutrophil Count 3.14 10^3/uL (1.2-6.7); Basophils % 0.3; Eosinophils % 1.6; HGB 14.2 g/dL (11.2-15.7); Immature Grans % 0.3; Lymphocytes % 42.5; MCH 28.6 pg (27.0-33.0); MCHC 33.8 % (32.0-36.0); MCV 85 fL (80-95); MPV 11.6 fL (8.0-11.0); Monocytes % 5.4; Neutrophils % 49.9; Platelet Count 266 10^3/uL (130-400); RBC 4.96 10^6/uL (3.93-5.22); RDW-SD 39.9 fL
[2023-02-03 16:37] LABS: Iron 60 ug/dL (50-170); Total Iron Binding Capacity 375 ug/dL (250-450); Transferrin Sat 16 % (15-50)
[2023-02-03 16:48] LABS: Vitamin D 25 Total 41.9 ng/mL (30-100)
[2023-02-03 17:01] LABS: ALT 30 U/L (14-59); AST 15 U/L (15-37); Albumin 3.9 g/dL (3.4-5.0); Alkaline Phosphatase 78 U/L (46-116); Anion Gap 9.1 mmol/L (3-11); BUN 10 mg/dL (7-18); Bilirubin, Total 0.3 mg/dL (0.2-1.0); CO2 26.9 mmol/L (21.0-32.0); CREATININE 0.8 mg/dL (0.55-1.02); Calcium 9.3 mg/dL (8.5-10.1); Chloride 104 mmol/L (98-107); Estimated GFR 105.45 (mL/min/1.73m2); Folate 9.2 ng/mL (8.6-20.0); Glucose 130 mg/dL (74-106); Potassium 3.9 mmol/L (3.5-5.1); Sodium 140 mmol/L (136-145); TSH (W/Ref FT4) 1.27 uIU/mL (0.36-3.74); Total Protein 7.4 g/dL (6.4-8.2); Vitamin B12 486 pg/mL (193-986)
== END 2023-02-03 15:02 | disposition home or self-care (01) ==
LOC: NCHCN 15:01
PROVIDERS: PCP Nurse Practitioner Family; Visit Provider Registered Nurse
DX: F41.1 Generalized anxiety disorder (principal)
CPT/HCPCS: 80053; 82306; 82607; 82746; 83540; 83550; 84443; 85025

== ENCOUNTER 2023-03-17 18:56 | Outpatient (REF) | payer MEDICAID, SELFPAY ==
[2023-03-17 19:49] LABS: Calculated LDL 106 mg/dL (<100); Cholesterol 158 mg/dL (<200); HDL Cholesterol 43 mg/dL (40-60); Triglyceride 45 mg/dL (<150)
[2023-03-17 20:00] LABS: Hemoglobin A1C 5.1 % (<5.7)
[2023-03-23 16:00] LABS: Dehydroepiandrosterone (DHEA) 3.4 ng/mL (<13)
[2023-03-24 16:01] LABS: Testosterone, Free 0.47 ng/dL (<0.13-1.06); Testosterone, Total 35 ng/dL (8-60)
[2023-03-25 17:26] LABS: 17-Hydroxyprogesterone 32 ng/dL
== END 2023-03-17 18:57 | disposition home or self-care (01) ==
LOC: NCHCN 18:56
PROVIDERS: PCP Nurse Practitioner Family; Visit Provider Nurse Practitioner Family
DX: R63.5 Abnormal weight gain (principal)
CPT/HCPCS: 80061; 84402; 84403; 82626; 83036; 83498

== ENCOUNTER 2023-03-31 15:06 | Outpatient (REF) | payer MEDICAID, SELFPAY ==
[2023-04-09 00:49] LABS: Midnight Cortisol 11300 ng/dL (<100)
== END 2023-03-31 15:07 | disposition home or self-care (01) ==
LOC: NCHCN 15:06
PROVIDERS: PCP Nurse Practitioner Family; Visit Provider Nurse Practitioner Family
DX: R63.5 Abnormal weight gain (principal); R53.83 Other fatigue; F33.1 Major depressive disorder, recurrent, moderate
CPT/HCPCS: 82530